=== PATIENT | male | born 1975 | race Caucasian/White ===

== ENCOUNTER 2019-04-17 09:22 | Emergency (ER) | payer OTHER, MEDICAID ==
[~2019-04-17] VITALS: Ht 177.8 cm; Wt 84.1 kg
[~2019-04-17 09:22] MED LIST: ATI0.5T PO; CITA-124 PO; CLON0.1T20 PO; NALT50TA PO; TRAZ-251 PO
[2019-04-17] MEDS ORDERED: LORazepam 2 mg/ml vial IV ONE ×2 (09:40→10:15)
[2019-04-17] MEDS ORDERED: thiamine 100mg/ml 2ml inj. IV ONE (09:40)
[2019-04-17] MEDS ORDERED: folic acid 1mg/0.2ml inj IV ONE (09:40)
[2019-04-17] MEDS ORDERED: normal saline 1000ML IV soln IVB ONE (09:40)
[2019-04-17] MEDS ORDERED: magnesium 2GM in 50ml NS 50 ML IV ONE (09:40)
[2019-04-17 09:57] LABS: BASOPHILS % (AUTO) 0.4 % (0-1); EOSINOPHILS % (AUTO) 0.3 % (0-6); HEMATOCRIT 42.2 % (42.0-52.0); HEMOGLOBIN 14.4 g/dl (14.0-17.9); LYMPHOCYTES # (AUTO) 0.8 X10'3 (1.1-4.8); LYMPHOCYTES % (AUTO) 15.9 % (21-51); MEAN CORPUSCULAR HEMOGLOBIN 33.9 PG (27.0-31.0); MEAN CORPUSCULAR HGB CONC 34.1 g/dL (33.0-36.5); MEAN CORPUSCULAR VOLUME 99.2 FL (78-98); MEAN PLATELET VOLUME 6.9 FL (7.4-10.4); MONOCYTES # (AUTO) 0.3 X10'3 (0-0.9); MONOCYTES % (AUTO) 6.5 % (2-12); NEUTROPHILS # (AUTO) 3.7 X10'3 (1.8-7.7); NEUTROPHILS % (AUTO) 76.9 % (42-75); PLATELET COUNT 78 X10'3 (140-440); RED BLOOD COUNT 4.25 X10'6 (4.70-6.10); RED CELL DISTRIBUTION WIDTH 13.7 % (11.5-14.5); WHITE BLOOD COUNT 4.8 X10'3 (4.5-11.0)
[2019-04-17] MEDS ORDERED: NO HOME MEDS (09:57)
[2019-04-17] MEDS ORDERED: ondansetron/PF 4mg/2ml inj IV ONE (10:15)
[2019-04-17 10:16] LABS: ALANINE AMINOTRANSFERASE 66 U/L (12-78); ALBUMIN 4.5 G/DL (3.4-5.0); ALBUMIN/GLOBULIN RATIO 1.1 (1.1-1.5); ALKALINE PHOSPHATASE 57 IU/L (46-116); ANION GAP 18 (8-16); ASPARTATE AMINO TRANSFERASE 57 U/L (10-37); BLOOD UREA NITROGEN 16 MG/DL (7-18); BUN/CREATININE RATIO 17.4 (5.4-32.0); CALCIUM 8.7 MG/DL (8.5-10.1); CHLORIDE 96 MMOL/L (99-107); CREATININE 0.92 MG/DL (0.60-1.10); GLUCOSE 146 MG/DL (70-104); POTASSIUM 3.7 MMOL/L (3.5-5.1); SODIUM 137 MMOL/L (135-145); TOTAL PROTEIN 8.5 G/DL (6.4-8.2); eGFR 89 ML/MIN
[2019-04-17 10:20] LABS: CREATINE KINASE 599 U/L (39-308); ETHANOL < 0.010 GM/DL (0.0-0.010)
[2019-04-17] MEDS ORDERED: LORazepam 1 MG tablet PO ONE (12:10)
--- NOTE | 2019-04-17 12:11 | NUR ---
pt is unsteady on his feet, c/o dizziness with gait test. notified cristiano morales. new order for 1mg ativan po.
[2019-04-17 13:26] VITALS: BP 142/82
[2019-04-17] MEDS ORDERED: GABA300C PO (16:59)
[2019-04-17] MEDS ORDERED: LORA1TAB PO (16:59)
== END 2019-04-17 13:38 | disposition home or self-care (01) ==
LOC: ER 09:23
DX: S00.81XA Abrasion of other part of head, initial encounter (principal); F10.239 Alcohol dependence with withdrawal, unspecified; R56.9 Unspecified convulsions; R52 Pain, unspecified; F32.9 Major depressive disorder, single episode, unspecified; Z88.0 Allergy status to penicillin; Z88.1 Allergy status to other antibiotic agents; Z79.899 Other long term (current) drug therapy; X58.XXXA Exposure to other specified factors, initial encounter; Y93.89 Activity, other specified; Y92.89 Other specified places as the place of occurrence of the external cause; Y99.8 Other external cause status
CPT/HCPCS: 36415; 70450; 71045; 80053; 80320; 82140; 82550; 82948; 85025; 85610; 93005; 96365; 96366; 96375; 96376; 99284; J2060; J2405; J3411; J3475; J3490; J7030

== ENCOUNTER 2019-04-17 13:50 | Emergency (ER) | payer BC, OTHER ==
[~2019-04-17] VITALS: Ht 177.8 cm; Wt 84.0 kg
[~2019-04-17 13:50] MED LIST changes: +NO HOME MEDS
[2019-04-17] MEDS ORDERED: normal saline 1000ML IV soln IV ONE (14:15)
[2019-04-17] MEDS ORDERED: LORA1TAB PO (16:59)
[2019-04-17] MEDS ORDERED: GABA300C PO (16:59)
--- NOTE | 2019-04-17 17:00 | NUR ---
PT C/O "AURA", "SPINNING" WHEN GETTING READY TO DISCHARGE AND TAKE IV OUT, EYES WERE BOUNCING UP AND DOWN. PROVIDER WAS NOTIFIED, CAME TO SPEAK TO PT AGAIN. PT WILL BE DISCHARGED WITH RX FOR ATIVAN AND GABAPENTIN, PER PROVIDER
[2019-04-17 17:06] VITALS: BP 151/89
== END 2019-04-17 17:08 | disposition home or self-care (01) ==
LOC: ER 13:51
DX: F10.10 Alcohol abuse, uncomplicated (principal); E86.0 Dehydration; F32.9 Major depressive disorder, single episode, unspecified; Z88.0 Allergy status to penicillin; Z88.1 Allergy status to other antibiotic agents; W18.39XA Other fall on same level, initial encounter; Y93.89 Activity, other specified; Y92.89 Other specified places as the place of occurrence of the external cause; Y99.8 Other external cause status; Y90.9 Presence of alcohol in blood, level not specified
CPT/HCPCS: 96360; 96361; 99284; J7030

== ENCOUNTER 2019-05-05 22:02 | Emergency (ER) | payer OTHER ==
[~2019-05-05] VITALS: Ht 177.8 cm; Wt 84.0 kg
[~2019-05-05 22:02] MED LIST changes: -ATI0.5T PO; -CITA-124 PO; -CLON0.1T20 PO; +GABA300C PO; -NALT50TA PO; -TRAZ-251 PO
[2019-05-05] MEDS ORDERED: normal saline 1000ML IV soln IVB ONE (22:40)
--- NOTE | 2019-05-05 23:00 | NUR ---
Poison control contacted, 4-6 hr observation recommended for possible DEPARTMENT SECRETARY depression
[2019-05-05 23:20] LABS: ALANINE AMINOTRANSFERASE 60 U/L (12-78); ALBUMIN 4.1 G/DL (3.4-5.0); ALBUMIN/GLOBULIN RATIO 0.9 (1.1-1.5); ALKALINE PHOSPHATASE 59 IU/L (46-116); ANION GAP 13 (8-16); ASPARTATE AMINO TRANSFERASE 41 U/L (10-37); BILIRUBIN,TOTAL 0.2 MG/DL (0.1-1.0); BLOOD UREA NITROGEN 14 MG/DL (7-18); BUN/CREATININE RATIO 15.7 (5.4-32.0); CHLORIDE 103 MMOL/L (99-107); CREATININE 0.89 MG/DL (0.60-1.10); GLUCOSE 78 MG/DL (70-104); POTASSIUM 4.3 MMOL/L (3.5-5.1); SODIUM 145 MMOL/L (135-145); TOTAL CARBON DIOXIDE 29.5 MMOL/L (24-32); TOTAL PROTEIN 8.5 G/DL (6.4-8.2); eGFR > 90 ML/MIN
[2019-05-05 23:30] LABS: BASOPHILS % (AUTO) 0.7 % (0-1); EOSINOPHILS % (AUTO) 0.5 % (0-6); ETHANOL 0.112 GM/DL (0.0-0.010); HEMATOCRIT 45.3 % (42.0-52.0); HEMOGLOBIN 15.6 g/dl (14.0-17.9); LYMPHOCYTES # (AUTO) 1.1 X10'3 (1.1-4.8); LYMPHOCYTES % (AUTO) 20.4 % (21-51); MEAN CORPUSCULAR HEMOGLOBIN 34.7 PG (27.0-31.0); MEAN CORPUSCULAR HGB CONC 34.4 g/dL (33.0-36.5); MEAN CORPUSCULAR VOLUME 100.9 FL (78-98); MEAN PLATELET VOLUME 6.7 FL (7.4-10.4); MONOCYTES # (AUTO) 0.5 X10'3 (0-0.9); MONOCYTES % (AUTO) 8.3 % (2-12); NEUTROPHILS # (AUTO) 3.9 X10'3 (1.8-7.7); NEUTROPHILS % (AUTO) 70.1 % (42-75); PLATELET COUNT 424 X10'3 (140-440); RED BLOOD COUNT 4.49 X10'6 (4.70-6.10); RED CELL DISTRIBUTION WIDTH 13.5 % (11.5-14.5); WHITE BLOOD COUNT 5.6 X10'3 (4.5-11.0)
[2019-05-05 23:33] LABS: CLARITY,URINE CLEAR (Clear); COLOR,URINE YELLOW (Yellow); GLUCOSE, URINE NEGATIVE (Neg); KETONES,URINE NEGATIVE (Neg); LEUKOCYTE ESTERASE ,URINE NEGATIVE (Neg); NITRITES, URINE NEGATIVE (Neg); OCCULT BLOOD,URINE NEGATIVE (Neg); PROTEIN,URINE 30 mg/dl (Neg); URINE AMPHETAMINE SCREEN NEGATIVE (Neg); URINE BARBITUATE SCREEN NEGATIVE (Neg); URINE BENZODIAZEPINES SCREEN NEGATIVE (Neg); URINE CANNABINOID SCREEN NEGATIVE (Neg); URINE COCAINE SCREEN NEGATIVE (Neg); URINE METHADONE SCREEN NEGATIVE (Neg); URINE OPIATE SCREEN POSITIVE (Neg); URINE PHENCYCLIDINE SCREEN NEGATIVE (Neg); UROBILINOGEN,URINE 0.2 E.U/dL (0.2-1.0)
[2019-05-05 23:34] LABS: UA COLLECTION TYPE VOIDED
--- NOTE | 2019-05-06 00:09 | NUR ---
Patient moved to 16 for direct observation, personal belongings inventoried, patient changed into hospital scrubs.
[2019-05-06 00:18] LABS: ACETAMINOPHEN < 2.0 UG/ML (10-30)
[2019-05-06 00:19] LABS: AMORPHOUS PHOSPHATES 1+; BACTERIA,URINE NONE SEEN /HPF (Neg); MUCUS STRANDS MODERATE /LPF (Neg); RBC,URINE NONE SEEN /HPF (0-2); SQUAMOUS EPITHELIAL CELL,UR FEW /LPF (FEW); WBC,URINE 0-4 /HPF (0-4)
--- NOTE | 2019-05-06 03:53 | NUR ---
TRANSFERRED CARE OF PATIENT TO HARPER CRISOSTOMO AT THIS TIME
--- NOTE | 2019-05-06 03:54 | NUR ---
PHONE REPORT FROM DUSTIN CRISOSTOMO
--- NOTE | 2019-05-06 03:57 | NUR ---
PATIENT AMBULATED FROM ROOM 16 IN MAIN ER TO ROOM 22 IN ER OVERFLOW WITH BETTINA CRISOSTOMO
--- NOTE | 2019-05-06 04:12 | NUR ---
Packet sent to [facility]. Unable to confirm receipt of packet as [id number] hours.
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
--- NOTE | 2019-05-06 06:07 | NUR ---
PATIENT ATE YOGURT, CHEESE STCIK AND JUICE
--- NOTE | 2019-05-06 07:31 | NUR ---
AWAKE AND RESTING IN BED. CALM AND QUIET WITHOUT COMPLAINTS. NO DISTRESS NOTED AT THIS TIME.
--- NOTE | 2019-05-06 08:27 | NUR ---
TELEPHONE CALL FROM PATIENT'S MOTHER, INQUIRING ABOUT SON'S ADMISSION STATUS. PATIENT STATES THAT HE WOULD ALLOW VISITATION FROM HIS MOTHER AND THAT WE CAN GIVE BASIC INFORMATION TO HER. MOTHER WILL BE COMING TO VISIT THIS MORNING. ER RIGISTRATION NOTIFIED OF PATIENT'S DESIRE TO ALLOW HIS MOTHER TO VISIT, DESPITE CONFIDENTIAL STATUS.
--- NOTE | 2019-05-06 08:46 | NUR ---
PATIENT'S EX-GIRLFRIEND, LAWRENCE, IS HERE TO VISIT AND INFORMED THAT SHE IS UNABLE AT THIS TIME, BASED ON PATIENT'S CONFIDENTIAL STATUS.
--- NOTE | 2019-05-06 09:10 | NUR ---
MOTHER HERE TO VISIT. APPROPRIATE INTERACTIONS NOTED BETWEEN PATIENT AND HIS MOTHER.
--- NOTE | 2019-05-06 10:26 | NUR ---
Break RN:patient asleep,on high fowlers.
--- NOTE | 2019-05-06 13:02 | NUR ---
OFFERED TO CHANGE PT LINENS, PT REQUESTED TO HELP ME "TO GIVE HIM SOMETHING TO DO". PT WAS GIVEN CLEAN MEDIUM SIZED SCURBS, HYGIENE BASIN, AND NEW SOCKS.
--- NOTE | 2019-05-06 13:06 | NUR ---
PTS GIRLFRIEND LAWRENCE AT BEDSIDE.
--- NOTE | 2019-05-06 13:19 | NUR ---
RELIEVING RN FOR BREAK, PT IS CALM AND COOPERATIVE, SITTING ON BED TALKING QUIETLY WITH EX GIRLFRIEND
--- NOTE | 2019-05-06 13:50 | NUR ---
PT IVCENTE LEFT, PT STATES THE VISIT WENT WELL AND IS SMILING. PT REQUESTED SOMETHING TO DO AND PICKED A BOOK.
--- NOTE | 2019-05-06 14:46 | NUR ---
primary RN was sent on a 15 min break. pt at the nurses station making a phone call.
--- NOTE | 2019-05-06 17:29 | NUR ---
RELIEVING RN FOR LUNCH, PT RESTING IN BED, NO NEEDS AT THIS TIME.
--- NOTE | 2019-05-06 18:30 | NUR ---
RN assumed care of pt. pt. is calm, laying in bed and reading.
[2019-05-06] MEDS ORDERED: acetaminophen 325mg tablet PO ONE (18:45)
--- NOTE | 2019-05-06 19:00 | NUR ---
Pt. up and at nurses station. Pt. friendly. discussing the situation which resulted in his 5150 and being brought to the ER. Pt. reports that he was not suicidal, and that he's never been suicidal, only that he has bad coping with ETOH which has been on and off the last 8 years. Pt. reports that he was very devastated from his fiancee breaking off the engagement and breaking up with him. Pt. reports he is hoping to get discharged tomorrow and see his therapist and get set up with Dr. Montelongo or some rehab. Pt. reports he is concerened about being able to pay for rehab. Pt. reports he is hopeful for the future because he has 2 children ages 12 and 9 and wants to be there for him.
--- NOTE | 2019-05-06 21:00 | NUR ---
Pt. is awake and laying in bed and reading. Pt. in no distress. Will continue to monitor.
--- NOTE | 2019-05-06 23:00 | NUR ---
Pt. laying in bed reading a book. pt. in no distress. Will continue to monitor.
--- NOTE | 2019-05-07 01:02 | NUR ---
Pt. reading in bed. no signs of distress. Will continue to monitor.
--- NOTE | 2019-05-07 03:00 | NUR ---
Pt. laying on his side asleep. Normal rate and rhythm of respirations noted. Will continue to monitor.
--- NOTE | 2019-05-07 05:00 | NUR ---
Pt. laying on back awake in bed. pt. calm and has normal rate and rhythm of respirations.
[2019-05-07 05:30] VITALS: BP 164/88
--- NOTE | 2019-05-07 06:15 | NUR ---
Pt.'s BP 164/88. Pt. states, "I'm agitated. I can't sleep well. the light's in my eyes, people talking. I want to go home. Pt. shows no signs of ETOH withdrawal. HR 63, Temp 98.0, SPO2 98%, Resp 16
--- NOTE | 2019-05-07 06:41 | NUR ---
Patient reclining and reading. No distress observed. Continue to monitor.
--- NOTE | 2019-05-07 07:20 | NUR ---
Patient sitting in a chair by his bed chatting with staff. No distress observed. Patient denies SI and states he was never suicidal. Patient is awaiting re-eval from [facility]. Continue to monitor.
--- NOTE | 2019-05-07 09:22 | NUR ---
Patient sitting in chair in front of his bed and reading a book. No distress observed. Continue to monitor.
== END 2019-05-07 13:32 ==
LOC: ER 22:02 → EEVIPCON 22:02 → ER 05-07 13:32
DX: T14.91XA Suicide attempt, initial encounter (principal); F10.129 Alcohol abuse with intoxication, unspecified; Z88.0 Allergy status to penicillin; Z88.1 Allergy status to other antibiotic agents; Z79.899 Other long term (current) drug therapy; X83.8XXA Intentional self-harm by other specified means, initial encounter; Y93.89 Activity, other specified; Y92.89 Other specified places as the place of occurrence of the external cause; Y99.8 Other external cause status; Y90.0 Blood alcohol level of less than 20 mg/100 ml
CPT/HCPCS: 36415; 80053; 80305; 80320; 80329; 81001; 84443; 85025; 99285; J7030

== ENCOUNTER 2019-06-10 15:50 | Emergency (ER) | payer OTHER ==
[~2019-06-10] VITALS: Ht 177.8 cm; Wt 81.8 kg
[~2019-06-10 15:50] MED LIST changes: -NO HOME MEDS
[2019-06-10] MEDS ORDERED: LORazepam 2 mg/ml vial IV ONE (16:30)
[2019-06-10] MEDS ORDERED: normal saline 1000ML IV soln IVB ONE (16:30)
[2019-06-10] MEDS ORDERED: morphine 4 MG/ML inj SYRINge IV ONE (16:30)
--- NOTE | 2019-06-10 16:47 | NUR ---
ice pack to head
[2019-06-10 16:49] LABS: BASOPHILS # (AUTO) 0.1 X10'3 (0-0.2); BASOPHILS % (AUTO) 1.3 % (0-1); EOSINOPHILS % (AUTO) 1.1 % (0-6); HEMATOCRIT 44.7 % (42.0-52.0); HEMOGLOBIN 15.8 g/dl (14.0-17.9); LYMPHOCYTES # (AUTO) 1.3 X10'3 (1.1-4.8); LYMPHOCYTES % (AUTO) 30.6 % (21-51); MEAN CORPUSCULAR HEMOGLOBIN 35.1 PG (27.0-31.0); MEAN CORPUSCULAR HGB CONC 35.3 g/dL (33.0-36.5); MEAN CORPUSCULAR VOLUME 99.5 FL (78-98); MEAN PLATELET VOLUME 6.4 FL (7.4-10.4); MONOCYTES # (AUTO) 0.4 X10'3 (0-0.9); MONOCYTES % (AUTO) 8.7 % (2-12); NEUTROPHILS # (AUTO) 2.6 X10'3 (1.8-7.7); NEUTROPHILS % (AUTO) 58.3 % (42-75); PLATELET COUNT 246 X10'3 (140-440); RED CELL DISTRIBUTION WIDTH 14.1 % (11.5-14.5); WHITE BLOOD COUNT 4.4 X10'3 (4.5-11.0)
--- NOTE | 2019-06-10 16:51 | NUR ---
let dr garcia know that patient's head is still hurting despite morphine
[2019-06-10 16:57] LABS: ALANINE AMINOTRANSFERASE 62 U/L (12-78); ALBUMIN 4.1 G/DL (3.4-5.0); ALKALINE PHOSPHATASE 69 IU/L (46-116); ANION GAP 11 (8-16); ASPARTATE AMINO TRANSFERASE 49 U/L (10-37); BILIRUBIN,TOTAL 0.2 MG/DL (0.1-1.0); BLOOD UREA NITROGEN 19 MG/DL (7-18); BUN/CREATININE RATIO 24.4 (5.4-32.0); CALCIUM 8.6 MG/DL (8.5-10.1); CHLORIDE 100 MMOL/L (99-107); CREATININE 0.78 MG/DL (0.60-1.10); ETHANOL 0.291 GM/DL (0.0-0.010); GLUCOSE 117 MG/DL (70-104); POTASSIUM 3.4 MMOL/L (3.5-5.1); SODIUM 140 MMOL/L (135-145); TOTAL CARBON DIOXIDE 28.9 MMOL/L (24-32); TOTAL PROTEIN 8.3 G/DL (6.4-8.2); eGFR > 90 ML/MIN
[2019-06-10] MEDS ORDERED: ketorolac trometh. 30mg/ml inj. IV ONE (17:25)
--- NOTE | 2019-06-10 17:42 | NUR ---
LAWRENCE (EMERGENCY CONTACT) WILL BUTT PRESSER MONROE AT 2030.
--- NOTE | 2019-06-10 18:00 | NUR ---
DISUSSED PATIENT'S OSPINA WITH DR MILLER, NO NEW ORDERS: PATIENT RECEIVED TORADOL AND MORPHINE IV
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
--- NOTE | 2019-06-10 18:29 | NUR ---
TALKED WITH PATIENT'S MOTHER AT [phone] AND SHE WILL PICK HIM UP
[2019-06-10] MEDS ORDERED: proCHLORperazine 10 MG/2 ml inj IV ONE (18:30)
--- NOTE | 2019-06-10 18:47 | NUR ---
discussed pt's c/o pain with edmd garcia; no new orders received.
[2019-06-10 19:21] VITALS: BP 141/63
--- NOTE | 2019-06-10 19:21 | NUR ---
WALKED PATIENT OUT TO HIS MOTHER'S CAR WITH MINIMAL ASSIST WITH MOTHER.
== END 2019-06-10 19:10 | disposition home or self-care (01) ==
LOC: ER 15:51
DX: F10.129 Alcohol abuse with intoxication, unspecified (principal); G40.909 Epilepsy, unspecified, not intractable, without status epilepticus; F17.200 Nicotine dependence, unspecified, uncomplicated; F32.9 Major depressive disorder, single episode, unspecified; Z88.0 Allergy status to penicillin; Z88.1 Allergy status to other antibiotic agents; Y90.9 Presence of alcohol in blood, level not specified
CPT/HCPCS: 36415; 71045; 80053; 80320; 82948; 85025; 93005; 96374; 96375; 99284; J0780; J1885; J2060; J2270; J7030

== ENCOUNTER 2019-08-23 17:28 | Emergency (ER) | payer OTHER ==
[~2019-08-23] VITALS: Ht 177.8 cm; Wt 70.0 kg
[2019-08-23] MEDS ORDERED: ondansetron/PF 4mg/2ml inj IV ONE (18:20)
[2019-08-23 18:54] LABS: MEAN CORPUSCULAR VOLUME 98.7 FL (78-98)
[2019-08-23 18:56] LABS: BASOPHILS % (AUTO) 0.8 % (0-1); HEMOGLOBIN 14.6 g/dl (14.0-17.9); LYMPHOCYTES % (AUTO) 20.2 % (21-51); MEAN CORPUSCULAR HEMOGLOBIN 34.2 PG (27.0-31.0); MEAN CORPUSCULAR HGB CONC 34.6 g/dL (33.0-36.5); MEAN PLATELET VOLUME 6.8 FL (7.4-10.4); MONOCYTES # (AUTO) 0.4 X10'3 (0-0.9); NEUTROPHILS # (AUTO) 3.4 X10'3 (1.8-7.7); PLATELET COUNT 193 X10'3 (140-440); RED BLOOD COUNT 4.26 X10'6 (4.70-6.10); RED CELL DISTRIBUTION WIDTH 12.6 % (11.5-14.5); WHITE BLOOD COUNT 4.8 X10'3 (4.5-11.0)
[2019-08-23 18:57] LABS: ALANINE AMINOTRANSFERASE 51 U/L (12-78); ALBUMIN 3.5 G/DL (3.4-5.0); ALKALINE PHOSPHATASE 63 IU/L (46-116); ANION GAP 6 (8-16); ASPARTATE AMINO TRANSFERASE 40 U/L (10-37); BILIRUBIN,TOTAL 0.4 MG/DL (0.1-1.0); BLOOD UREA NITROGEN 11 MG/DL (7-18); BUN/CREATININE RATIO 12.5 (5.4-32.0); CALCIUM 7.7 MG/DL (8.5-10.1); CHLORIDE 104 MMOL/L (99-107); CREATININE 0.88 MG/DL (0.60-1.10); ETHANOL 0.281 GM/DL (0.0-0.010); GLUCOSE 105 MG/DL (70-104); LIPASE 138 U/L (73-393); SODIUM 142 MMOL/L (135-145); TOTAL CARBON DIOXIDE 32.2 MMOL/L (24-32); eGFR > 90 ML/MIN
[2019-08-23] MEDS ORDERED: LORazepam 2 mg/ml vial IM ONE (19:20)
[2019-08-23 19:34] LABS: PLATELET ESTIMATE NORMAL; TOTAL CELLS COUNTED 100
[2019-08-23 22:09] VITALS: BP 145/76
--- NOTE | 2019-08-23 22:44 | NUR ---
PT AMBULATED TO LOBBY AND TAXI HAS BEEN CALLED - HIS MOTHER IS EXPECTING HIM AT HOME.
== END 2019-08-23 23:02 | disposition home or self-care (01) ==
LOC: ER 17:28
DX: F10.129 Alcohol abuse with intoxication, unspecified (principal); E83.51 Hypocalcemia; R11.10 Vomiting, unspecified; F32.9 Major depressive disorder, single episode, unspecified; Z86.69 Personal history of other diseases of the nervous system and sense organs; Z88.0 Allergy status to penicillin; Z88.1 Allergy status to other antibiotic agents; Z79.899 Other long term (current) drug therapy; Y90.0 Blood alcohol level of less than 20 mg/100 ml
CPT/HCPCS: 36415; 70450; 80053; 80320; 83690; 85025; 96372; 96374; 99284; J2060; J2405

== ENCOUNTER 2019-08-30 09:59 | Emergency (ER) | payer OTHER ==
[~2019-08-30] VITALS: Ht 177.8 cm; Wt 81.8 kg
[~2019-08-30 09:59] MED LIST changes: +ATI1T PO
[2019-08-30] MEDS ORDERED: haloperidol lactate 5mg/ml inj IM ONE (10:10)
[2019-08-30] MEDS ORDERED: LORazepam 2 mg/ml vial ONE (10:37)
[2019-08-30] MEDS ORDERED: LORazepam 2 mg/ml vial IV ONE (10:40)
[2019-08-30 10:49] LABS: BASOPHILS % (AUTO) 0.6 % (0-1); EOSINOPHILS % (AUTO) 0.4 % (0-6); HEMATOCRIT 39.2 % (42.0-52.0); HEMOGLOBIN 13.7 g/dl (14.0-17.9); LYMPHOCYTES # (AUTO) 0.9 X10'3 (1.1-4.8); LYMPHOCYTES % (AUTO) 10.4 % (21-51); MEAN CORPUSCULAR VOLUME 99.8 FL (78-98); MEAN PLATELET VOLUME 7.1 FL (7.4-10.4); MONOCYTES # (AUTO) 0.7 X10'3 (0-0.9); MONOCYTES % (AUTO) 7.6 % (2-12); PLATELET COUNT 118 X10'3 (140-440); RED BLOOD COUNT 3.92 X10'6 (4.70-6.10); RED CELL DISTRIBUTION WIDTH 12.8 % (11.5-14.5); WHITE BLOOD COUNT 8.6 X10'3 (4.5-11.0)
[2019-08-30 11:05] LABS: ALANINE AMINOTRANSFERASE 57 U/L (12-78); ALBUMIN 3.8 G/DL (3.4-5.0); ALBUMIN/GLOBULIN RATIO 1.1 (1.1-1.5); ALKALINE PHOSPHATASE 69 IU/L (46-116); ANION GAP 13 (8-16); ASPARTATE AMINO TRANSFERASE 38 U/L (10-37); BILIRUBIN,TOTAL 0.5 MG/DL (0.1-1.0); BLOOD UREA NITROGEN 29 MG/DL (7-18); BUN/CREATININE RATIO 30.9 (5.4-32.0); CALCIUM 8.5 MG/DL (8.5-10.1); CHLORIDE 100 MMOL/L (99-107); CREATININE 0.94 MG/DL (0.60-1.10); GLUCOSE 105 MG/DL (70-104); POTASSIUM 3.3 MMOL/L (3.5-5.1); SODIUM 135 MMOL/L (135-145); TOTAL CARBON DIOXIDE 22.2 MMOL/L (24-32); TOTAL PROTEIN 7.4 G/DL (6.4-8.2); eGFR 87 ML/MIN
[2019-08-30] MEDS ORDERED: normal saline 1000ml 1,000 ML IVB ONE (11:09)
--- NOTE | 2019-08-30 11:10 | NUR ---
Notified Dr. Brooks regarding hypotension 97/34 mmHg. Obtained verbal order to 1 L NS bolus IV stat. Fluids started.
--- NOTE | 2019-08-30 11:14 | NUR ---
Call Poison control spoke with Estrellita, who stated the following: Clonidine can cause hypotension and bradycardia- treatment involved is fluids and supportive care Drowsiness - monitor and maintain airway For Clonidine OD- 4 mg-10 mg narcan IV can sometimes be effective as a one time dose. No second dose is require, if it doesn't work it wont work as a second dose. Minimum of 4 hour observation. Ultimately Supportive care is indicated. Blood work- tylenol asa, CBC, CMP
[2019-08-30 11:15] LABS: ACETAMINOPHEN < 2.0 UG/ML (10-30); ETHANOL 0.188 GM/DL (0.0-0.010)
--- NOTE | 2019-08-30 12:30 | NUR ---
PT SLEEPING LAYING SUPINE, RESPIRATIONS EVEN AND UNLABORED. NO SIGN OF DISTRESS NOTED AT THIS TIME.
--- NOTE | 2019-08-30 12:51 | NUR ---
CT NOTIFIED, PT IS READY FOR CT
--- NOTE | 2019-08-30 13:00 | NUR ---
PT TO CT VIA SARA RAMSEY;TH VACUUM CLEANER REPAIR PERSON
--- NOTE | 2019-08-30 13:20 | NUR ---
Patient voided in urinal, and spilt urine on scrub pants and bedding, so I changed the bedding and helped patient into clean clothing.
[2019-08-30 13:30] LABS: CLARITY,URINE CLEAR (Clear); COLOR,URINE STRAW (Yellow); GLUCOSE, URINE NEGATIVE (Neg); KETONES,URINE NEGATIVE (Neg); LEUKOCYTE ESTERASE ,URINE NEGATIVE (Neg); NITRITES, URINE NEGATIVE (Neg); OCCULT BLOOD,URINE NEGATIVE (Neg); PH,URINE 5.5 (4.8-8.0); PROTEIN,URINE NEGATIVE (Neg); UA COLLECTION TYPE URINAL; UROBILINOGEN,URINE 0.2 E.U/dL (0.2-1.0)
--- NOTE | 2019-08-30 13:35 | NUR ---
Patient is currently eating lunch, and has no complaints at this time.
[2019-08-30 13:36] LABS: URINE AMPHETAMINE SCREEN NEGATIVE (Neg); URINE BARBITUATE SCREEN NEGATIVE (Neg); URINE BENZODIAZEPINES SCREEN POSITIVE (Neg); URINE CANNABINOID SCREEN NEGATIVE (Neg); URINE COCAINE SCREEN NEGATIVE (Neg); URINE METHADONE SCREEN NEGATIVE (Neg); URINE OPIATE SCREEN NEGATIVE (Neg); URINE PHENCYCLIDINE SCREEN NEGATIVE (Neg)
--- NOTE | 2019-08-30 13:48 | NUR ---
PT IS SITTING UP IN BED EATING LUNCH. POLICE RESERVES COMMANDERLAVERNE CATALAN AT BEDSIDE.
--- NOTE | 2019-08-30 15:11 | NUR ---
KOREY FROM [facility] CONTROL CALLED, THE ONLY OTHER LABS LIVER FUNCTIONS REPEAT.
--- NOTE | 2019-08-30 15:29 | NUR ---
PT SLEEPING LAYING SUPINE, RESPIRATIONS EVEN AND UNLABORED. NO DISTRESS NOTED AT THIS TIME.
--- NOTE | 2019-08-30 15:44 | NUR ---
PACKET FAXED TO [facility]
[2019-08-30 16:01] LABS: ETHANOL 0.055 GM/DL (0.0-0.010)
[2019-08-30] MEDS ORDERED: ketorolac trometh. 30mg/ml inj. IV ONE (17:55)
[2019-08-30 18:36] VITALS: BP 96/50
== END 2019-08-30 19:50 ==
LOC: ER 09:59
DX: T42.4X2A Poisoning by benzodiazepines, intentional self-harm, initial encounter (principal); T42.6X2A Poisoning by other antiepileptic and sedative-hypnotic drugs, intentional self-harm, initial encounter; R41.82 Altered mental status, unspecified; F32.9 Major depressive disorder, single episode, unspecified; F10.20 Alcohol dependence, uncomplicated; Z86.69 Personal history of other diseases of the nervous system and sense organs; Z88.0 Allergy status to penicillin; Z88.1 Allergy status to other antibiotic agents; Z79.899 Other long term (current) drug therapy; Y90.0 Blood alcohol level of less than 20 mg/100 ml; Y92.89 Other specified places as the place of occurrence of the external cause
CPT/HCPCS: 36415; 70450; 80053; 80305; 80320; 80329; 81003; 84443; 84450; 84460; 85025; 93005; 96361; 96372; 96374; 96375; 99285; J1630; J1885; J2060; J7030

== ENCOUNTER 2019-08-30 15:45 | Inpatient (IN) | payer OTHER ==
[~2019-08-30] VITALS: Ht 177.8 cm; Wt 80.2 kg
[2019-08-30 20:00] VITALS: BP 105/68
--- NOTE | 2019-08-30 20:00 | NUR ---
Admission Note: Pt. admitted to [facility] at 1999, arrived via w/c accompanied by staff and security. Safety check and belongings inventoried by Kavon Leroy. Pt. was brought into the the ER today by Ste. Genevievesteven Fontaine on a 5150 for DTS and DTO. He had intentionally overdosed on "all of his medications" including 50 Ativan tablets, a "whole bottle" of Klonopin, and a "whole bottle" of Gabapentin. Pt. also reported drinking alcohol this morning. After overdosing he called his therapist, who then called 911. Upon admission assessment, pt. presents with flat affect and depression. He currently denies S/I, H/I, or any A/V/OSPINA. However, pt. does endorse anxiety, and reports that he has had a recent thirty pound weight loss r/t decreased appetite. When questioned by this junior copywriter, pt. reports that his last drink was on 08/26/19, and he drank four bottles of wine. He then had an ETOH withdrawal seizure and fell (reports a history of ETOH withdrawal seizures). Pt. has scabbed abrasions present on rt. forehead and upper lip r/t this fall. He also has a bruise on his rt. hip, pictures obtained and placed in chart. Pt. is on CIWA protocol, he reports a h/a and increased anxiety, Ativan 1mg administered X2 r/t protocol along with Tylenol. Pt. appears to be resting comfortably at this time, fall precautions are in place.
[2019-08-30] MEDS ORDERED: magnesium hydroxide 30ml (MOM) UD suspension PO PRN (20:35)
[2019-08-30] MEDS ORDERED: mag hydrox/Alum hydrox/simeth 30ml oral suspension PO PRN (20:35)
[2019-08-30] MEDS ORDERED: acetaminophen 325mg tablet PO PRN (20:35)
[2019-08-30] MEDS ORDERED: loperamide 2mg capsule PO PRN (20:35)
[2019-08-30] MEDS: LORazepam 1 MG tablet PO PRN ×2 (20:47→21:34)
[2019-08-30] MEDS ORDERED: NICOTINE POLACRILEX 2 MG LOZENGE BC PRN (21:30)
--- NOTE | 2019-08-31 03:25 | NUR ---
Awoke pt. to complete CIWA, pt. continues to report anxiety and a h/a, however he refuses any pain medication at this time. PRN Ativan administered r/t CIWA protocol, will continue to monitor.
[2019-08-31] MEDS: LORazepam 1 MG tablet PO PRN ×3 (03:30→16:43)
[2019-08-31] MEDS ORDERED: LORazepam 1 MG tablet PO PRN (04:00)
[2019-08-31 07:02] LABS: HEMOGLOBIN A1C 4.9 % (4.5-6.2)
[2019-08-31 07:04] LABS: CHOL/HDL RATIO 2.9 (0.00-4.99); CHOLESTEROL 177 MG/DL (0-200); HDL CHOLESTEROL 62 MG/DL (35-60); LDL CHOLESTEROL 109 MG/DL (50-100); TRIGLYCERIDES 44 MG/DL (20-135)
[2019-08-31 07:30] VITALS: BP 130/74
[2019-08-31] MEDS: gabapentin 300mg capsule PO SCH ×2 (08:29→16:43)
--- NOTE | 2019-08-31 09:28 | NUR ---
Malnutrition Consult: Pt admit on 5150 after intentional OD w/ SI and etoh consumption per EMR. Pt hx etoh withdrawals prior admit 2/3. Pt has no significant wt loss hx, no edema/wounds, normal strength, and BMI 25. PO meals pending. Pt does not meet minimum malnutrition criteria at this time. JOLANTA d/w RN regarding thiamin, folic, and MVI supplementation per MD approval given etoh hx. Addendum: 08/31/19 at [address] Amended: Links added.
[2019-08-31] MEDS: acetaminophen 325mg tablet PO PRN ×2 (11:21→16:20)
--- NOTE | 2019-08-31 16:57 | NUR ---
Nursing Progress Note: Legal hold: 5150 Client on involuntary status for DTS Report received from nurse with use of SBAR: ANDRESSA Alonso Why are they here: Pt. was brought into the the ER by Nancy Fontaine on a 5150 for DTS and DTO. He had intentionally overdosed on "all of his medications" including 50 Ativan tablets, a "whole bottle" of Klonopin, and a "whole bottle" of Gabapentin. Pt. also reported drinking alcohol that morning. After overdosing he called his therapist, who then called 911. Assessment What has happened this shift: Patient is observed resting at change of shift. He wakes and joins others for breakfast. He takes his medication without issue and he consumed all of his meal. He reports that he is still feeling very groggy this morning and that it is probably from all medications he took. He states that he wants the fogginess in his brain to go away because he is a thinker and he cant think. He states that he slept well the night before. He denies any needs at this time. Around 1100 patient reports that he is having a horrible headache and anxiety. RN administered Tyelnol and Ativan. Patient discussed the reasons he was feeling suicidal and denies feeling that way currently. He states that he has felt this way before in the past and just wishes that he could feel like he succeeded at something. Patient joins groups and is observed being appropriately social with staff and peers. He remains friendly and conversational througout the day. S/I, H/I: denies A/VH: denies Sleep: 8.5hrs NOC ADL's: Independent Group attendance: yes Were meds taken: Yes Any med S/E: None reported Mental Status Exam Appearance: clean and appropriate Eye contact: direct Behavior: Cooperative, friendly, tired Speech: soft tone, normal rate/rhythm Mood: disappointed Affect: congruent to mood with occasional brightening Thought process: Linear, reports he feels foggy Thought Content: no delusional thought content present Cognition: A/Ox4 Insight: Fair Judgment: Fair Interventions PRN's used: Ativan Therapeutic interventions: 1:1 therapeutic assessment, maintained safe therapeutic milieu, provided active listening with positive reinforcement, provided medication administration/education/monitoring as needed; Q15 safety checks. Restraints/seclusion/emergency medication: N/A Justification of Continued Inpatient Treatment: Continued therapeutic support and medication management needed to provide stabilization, prevent decompensation, improve coping mechanisms decreasing risk to patient and re-admittance.
[2019-08-31 19:00] VITALS: BP 122/77
[2019-08-31] MEDS: thiamine 100mg tablet PO SCH (21:13)
[2019-08-31] MEDS: traZODone 50mg tablet PO PRN (21:50)
[2019-09-01] MEDS: gabapentin 300mg capsule PO SCH ×3 (02:40→17:04)
[2019-09-01 02:45] VITALS: BP 120/69
[2019-09-01] MEDS: LORazepam 1 MG tablet PO PRN ×2 (04:43→11:33)
--- NOTE | 2019-09-01 05:01 | NUR ---
Nursing Progress Note: Legal hold: 5150 Client on involuntary status for DTS Report received from nurse with use of SBAR: Janice RN Why are they here: Pt. was brought into the the ER by Blakelysteven Fontaine on a 5150 for DTS and DTO. He had intentionally overdosed on "all of his medications" including 50 Ativan tablets, a "whole bottle" of Klonopin, and a "whole bottle" of Gabapentin. Pt. also reported drinking alcohol that morning. After overdosing he called his therapist, who then called 911. Assessment What has happened this shift: Patient laying in bed awake at the beginning of shift. He is pleasant and cooperative with all care; compliant with medication. Patient remains on CIWA q8H for Klonopin withdraw. He denies SI, HI, A/VH this shift. Patient minimizes his suicide attempt by reporting "it was just a dumb mistake; I don't want to ," with a smile. Patient socializes with staff. He participated in HS snack a. Patient requested sleep aid and provided Trazodone with positive effect. Patient was woke up migration agent for CIWA and he's remained awake. Shortly after leaving his room he requested Ativan for anxiety; pt reports positive effect. S/I, H/I: Denies A/VH: Denies Sleep: Refer to sleep assessment ADL's: Independent Group attendance: No groups this shift Were meds taken: Yes Any med S/E: None reported Mental Status Exam Appearance: Neat, clean and appropriate for the unit Eye contact: Direct Behavior: Cooperative, socializing Speech: soft tone, normal rate/rhythm Mood: "I'm good" Affect: Depressed with occasional brightening Thought process: Linear; minimizing suicide attempt Thought Content: Relationships Cognition: A/Ox4 Insight: Fair Judgment: Fair Interventions PRN's used: Trazodone and Ativan Therapeutic interventions: 1:1 therapeutic assessment, maintained safe therapeutic milieu, provided active listening with positive reinforcement, provided medication administration/education/monitoring as needed; Q15 safety checks. Restraints/seclusion/emergency medication: N/A Justification of Continued Inpatient Treatment: Continued therapeutic support and medication management needed to provide stabilization, prevent decompensation, improve coping mechanisms decreasing risk to patient and re-admittance.
[2019-09-01 07:35] VITALS: BP 143/92
[2019-09-01] MEDS: multivitamins, therapeutics tablet PO SCH (08:10)
[2019-09-01] MEDS: naltrexone 50mg tablet PO SCH (08:10)
[2019-09-01] MEDS: folic acid 1mg tablet PO SCH (08:10)
[2019-09-01] MEDS: ESCITALOPRAM OXALATE 5 MG TABLET PO SCH (08:10)
[2019-09-01] MEDS: thiamine 100mg tablet PO SCH ×2 (08:10→20:05)
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
[2019-09-01 20:00] VITALS: BP 134/91
[2019-09-01] MEDS: traZODone 50mg tablet PO PRN (22:51)
[2019-09-02] MEDS: gabapentin 300mg capsule PO SCH ×3 (01:37→15:35)
--- NOTE | 2019-09-02 05:16 | NUR ---
Nursing Progress Note: Legal hold: 5150 Client on involuntary status for DTS Report received from nurse with use of SBAR: ANDRESSA Camacho Why are they here: Pt. was brought into the the ER by Nancy Fontaine on a 5150 for DTS and DTO. He had intentionally overdosed on "all of his medications" including 50 Ativan tablets, a "whole bottle" of Klonopin, and a "whole bottle" of Gabapentin. Pt. also reported drinking alcohol that morning. After overdosing he called his therapist, who then called 911. Assessment What has happened this shift: Patient visible on the unit at the beginning of shift. Socializing with peers and staff. Pleasant and cooperative; compliant with medication. Patient denies SI, HI, A/VH. He discussed difficulties with past r/t lead to his "poor decision." Patient expressed readiness to discharge to home. Patient requested sleep aid and provided PRN Trazodone with possitive effect. S/I, H/I: Denies A/VH: Denies Sleep: Refer to sleep assessment ADL's: Independent Group attendance: No groups this shift Were meds taken: Yes Any med S/E: None reported Mental Status Exam Appearance: Neat, clean and appropriate for the unit Eye contact: Direct Behavior: Cooperative, socializing Speech: soft tone, normal rate/rhythm Mood: "Good" Affect: Depressed with occasional brightening Thought process: Linear; minimizing Thought Content: Relationships and discharge Cognition: A/Ox4 Insight: Fair Judgment: Fair Interventions PRN's used: Trazodone Therapeutic interventions: 1:1 therapeutic assessment, maintained safe therapeutic milieu, provided active listening with positive reinforcement, provided medication administration/education/monitoring as needed; Q15 safety checks. Restraints/seclusion/emergency medication: N/A Justification of Continued Inpatient Treatment: Continued therapeutic support and medication management needed to provide stabilization, prevent decompensation, improve coping mechanisms decreasing risk to patient and re-admittance.
[2019-09-02 08:00] VITALS: BP 132/87
[2019-09-02] MEDS: multivitamins, therapeutics tablet PO SCH (08:16)
[2019-09-02] MEDS: naltrexone 50mg tablet PO SCH (08:17)
[2019-09-02] MEDS: folic acid 1mg tablet PO SCH (08:17)
[2019-09-02] MEDS: thiamine 100mg tablet PO SCH (08:17)
[2019-09-02] MEDS: ESCITALOPRAM OXALATE 5 MG TABLET PO SCH (08:17)
--- NOTE | 2019-09-02 11:57 | NUR ---
Nursing Progress Note: Legal hold: 5150 Client on involuntary status for DTS Report received from nurse with use of SBAR: Deisy PRATER Why are they here: Pt. was brought into the the ER by Nancy Fontaine on a 5150 for DTS and DTO. He had intentionally overdosed on "all of his medications" including 50 Ativan tablets, a "whole bottle" of Klonopin, and a "whole bottle" of Gabapentin. Pt. also reported drinking alcohol that morning. After overdosing he called his therapist, who then called 911. Assessment What has happened this shift: Pt is denying symptoms today, states that "I feel pretty good." Pt states that [facility] with [facility] [place] and that he is all set up to go there. Pt's 5150 hold expires this evening. Pt's ex-girlfriend Shan called and wished to speak with pt. Both [employer] phones were in use at the time so she requested that this RN leave pt a message to call her. Notified pt of Shan's request. S/I, H/I: Pt denies A/VH: Pt denies Sleep: Pt slept 4.25 hours last night, does not nap during the day. ADL's: Independent Group attendance: Yes Were meds taken: Yes Any med S/E: None noted or reported Mental Status Exam Appearance: Neat, clean, dressed in street clothes Eye contact: good Behavior: Pleasant, cooperative Speech: Clear, audible, normal rate and rhythm Mood: "pretty good" Affect: Calm, euthymic Thought process: Organized Thought Content: Focused on discharge to inpatient rehab at [facility]. Cognition: A/O x 4 Insight: Good Judgment: Fair Interventions PRN's used: None Therapeutic interventions: 1:1 assessment, active listening, therapeutic conversation, positive reinforcement, medication administration/education/monitoring, Q15 minute safety checks. Restraints/seclusion/emergency medication: N/A Justification of Continued Inpatient Treatment: Continued therapeutic support and medication management needed to provide stabilization, prevent decompensation, improve coping mechanisms decreasing risk to patient and re-admittance.
[2019-09-02] MEDS ORDERED: NICO-687 TOP (12:58)
[2019-09-02] MEDS ORDERED: NALT50TA PO (12:58)
[2019-09-02] MEDS ORDERED: HYDR50TA65 PO ×2 (12:58→15:53)
[2019-09-02] MEDS ORDERED: NICO-668 BC (12:58)
[2019-09-02] MEDS ORDERED: ESCI5TAB PO ×2 (12:58→15:53)
--- NOTE | 2019-09-02 18:19 | NUR ---
DISCHARGE NOTE: Pt discharged home at 1650, ambulated off the unit accompanied by PCT, all belongings returned, paper RX's provided, discharge instructions and follow up care reviewed, pt expressed understanding.
== END 2019-09-02 16:50 | disposition home or self-care (01) | DRG 885 ==
LOC: ADULT MH 15:45
PROVIDERS: ADMIT Psychiatry & Neurology Psychiatry; ATTEND Psychiatry & Neurology Psychiatry
DX: F33.2 Major depressive disorder, recurrent severe without psychotic features (principal); R45.851 Suicidal ideations; F17.210 Nicotine dependence, cigarettes, uncomplicated; F10.10 Alcohol abuse, uncomplicated; Z79.899 Other long term (current) drug therapy; Z80.9 Family history of malignant neoplasm, unspecified
CPT/HCPCS: 36415; 80061; 83036; 87081; 93005; 99285

== ENCOUNTER 2019-09-23 13:49 | Emergency (ER) | payer OTHER ==
[~2019-09-23] VITALS: Ht 177.8 cm; Wt 84.0 kg
[~2019-09-23 13:49] MED LIST changes: -ATI1T PO; +ESCI5TAB PO; +HYDR50TA65 PO; +NALT50TA PO; +NICO-668 BC; +NICO-687 TOP
[2019-09-23] MEDS ORDERED: normal saline 1000ml 1,000 ML IV ONE (15:15)
[2019-09-23] MEDS ORDERED: LORazepam 2 mg/ml vial IV ONE (15:15)
[2019-09-23] MEDS ORDERED: chlordiazePOXIDE 25mg capsule PO ONE (15:15)
[2019-09-23] MEDS ORDERED: thiamine 100mg tablet PO ONE (15:20)
[2019-09-23] MEDS ORDERED: carBAMazepine Ext. Release 200 MG TAB.ER.12H PO STA (15:27)
[2019-09-23 15:51] LABS: BASOPHILS % (AUTO) 1.2 % (0-1); EOSINOPHILS # (AUTO) 0.1 X10'3 (0-0.9); EOSINOPHILS % (AUTO) 2.6 % (0-6); HEMOGLOBIN 13.3 g/dl (14.0-17.9); LYMPHOCYTES # (AUTO) 1.1 X10'3 (1.1-4.8); LYMPHOCYTES % (AUTO) 35.9 % (21-51); MEAN CORPUSCULAR HEMOGLOBIN 35.2 PG (27.0-31.0); MEAN CORPUSCULAR HGB CONC 35.1 g/dL (33.0-36.5); MEAN CORPUSCULAR VOLUME 100.3 FL (78-98); MEAN PLATELET VOLUME 6.6 FL (7.4-10.4); MONOCYTES # (AUTO) 0.3 X10'3 (0-0.9); MONOCYTES % (AUTO) 9.8 % (2-12); NEUTROPHILS # (AUTO) 1.6 X10'3 (1.8-7.7); NEUTROPHILS % (AUTO) 50.5 % (42-75); PLATELET COUNT 102 X10'3 (140-440); RED BLOOD COUNT 3.79 X10'6 (4.70-6.10); RED CELL DISTRIBUTION WIDTH 14.8 % (11.5-14.5); WHITE BLOOD COUNT 3.2 X10'3 (4.5-11.0)
[2019-09-23 16:00] LABS: PARTIAL THROMBOPLASTIN TIME 28 SECONDS (22-32)
[2019-09-23 16:02] LABS: ALANINE AMINOTRANSFERASE 27 U/L (12-78); ALBUMIN 3.4 G/DL (3.4-5.0); ALKALINE PHOSPHATASE 76 IU/L (46-116); ANION GAP 9 (8-16); ASPARTATE AMINO TRANSFERASE 41 U/L (10-37); BILIRUBIN,TOTAL 0.2 MG/DL (0.1-1.0); BLOOD UREA NITROGEN 22 MG/DL (7-18); BUN/CREATININE RATIO 27.5 (5.4-32.0); CALCIUM 7.9 MG/DL (8.5-10.1); CHLORIDE 109 MMOL/L (99-107); ETHANOL 0.224 GM/DL (0.0-0.010); GLUCOSE 97 MG/DL (70-104); POTASSIUM 3.6 MMOL/L (3.5-5.1); SODIUM 145 MMOL/L (135-145); TOTAL CARBON DIOXIDE 26.7 MMOL/L (24-32); TOTAL PROTEIN 6.8 G/DL (6.4-8.2); eGFR > 90 ML/MIN
[2019-09-23 16:14] VITALS: BP 116/74
[2019-09-23] MEDS ORDERED: TRAZ-251 PO (16:29)
[2019-09-23] MEDS ORDERED: LORA2TAB96 PO (16:29)
[2019-09-23] MEDS ORDERED: ONDA4TAB6 PO (16:29)
[2019-09-23] MEDS ORDERED: CHLO10CA6 (16:29)
[2019-09-23] MEDS ORDERED: NALT50TA PO (16:39)
[2019-09-23] MEDS ORDERED: OMEP20TA23 PO (16:39)
[2019-09-23] MEDS ORDERED: CARB100C9 PO (16:39)
[2019-09-23 16:43] LABS: URINE AMPHETAMINE SCREEN NEGATIVE (Neg); URINE BARBITUATE SCREEN NEGATIVE (Neg); URINE BENZODIAZEPINES SCREEN POSITIVE (Neg); URINE CANNABINOID SCREEN NEGATIVE (Neg); URINE COCAINE SCREEN NEGATIVE (Neg); URINE METHADONE SCREEN NEGATIVE (Neg); URINE OPIATE SCREEN NEGATIVE (Neg); URINE PHENCYCLIDINE SCREEN NEGATIVE (Neg)
== END 2019-09-23 16:54 | disposition home or self-care (01) ==
LOC: ER 13:49
DX: F10.239 Alcohol dependence with withdrawal, unspecified (principal); R10.84 Generalized abdominal pain; R11.2 Nausea with vomiting, unspecified; F32.9 Major depressive disorder, single episode, unspecified; Z86.69 Personal history of other diseases of the nervous system and sense organs; Z88.0 Allergy status to penicillin; Z88.1 Allergy status to other antibiotic agents; Z79.899 Other long term (current) drug therapy; Y90.0 Blood alcohol level of less than 20 mg/100 ml
CPT/HCPCS: 36415; 80053; 80305; 80320; 82948; 83735; 85025; 85610; 85730; 96361; 96374; 99284; J2060; J7030

== ENCOUNTER 2019-09-27 00:59 | Emergency (ER) | payer OTHER ==
[~2019-09-27] VITALS: Ht 177.8 cm; Wt 79.5 kg
[~2019-09-27 00:59] MED LIST changes: +CARB100C9 PO; +CHLO10CA6; -GABA300C PO; +LORA2TAB96 PO; -NICO-668 BC; -NICO-687 TOP; +OMEP20TA23 PO; +ONDA4TAB6 PO; +TRAZ-251 PO
[2019-09-27] MEDS ORDERED: diphenhydrAMINE 25mg capsule PO ONE (01:20)
[2019-09-27] MEDS ORDERED: triamcinolone acetonide 40mg/ml inj IM ONE (01:20)
[2019-09-27] MEDS ORDERED: cloNIDine 0.1 mg tablet PO ONE (01:20)
[2019-09-27] MEDS ORDERED: CLON-529 PO (01:29)
[2019-09-27] MEDS ORDERED: PRED20TA PO (01:29)
== END 2019-09-27 01:42 | disposition home or self-care (01) ==
LOC: ER 01:00
DX: R21 Rash and other nonspecific skin eruption (principal); F32.9 Major depressive disorder, single episode, unspecified; Z86.69 Personal history of other diseases of the nervous system and sense organs; Z88.0 Allergy status to penicillin; Z88.1 Allergy status to other antibiotic agents; Z79.899 Other long term (current) drug therapy
CPT/HCPCS: 96372; 99283; J3301; Q0163

== ENCOUNTER 2019-11-01 08:17 | Inpatient (IN) | payer OTHER ==
[2019-11-01] VITALS (12 sets, daily range): BP systolic 121–151; BP diastolic 82–104
[~2019-11-01] VITALS: Ht 177.8 cm; Wt 80.0 kg
[~2019-11-01 08:17] MED LIST changes: +CLON-529 PO
[2019-11-01] MEDS ORDERED: LORazepam 2 mg/ml vial IV ONE (08:30)
[2019-11-01] MEDS ORDERED: pantoprazole 40 MG vial IV ONE (08:30)
[2019-11-01] MEDS ORDERED: normal saline 1000ML IV soln IV ONE (08:30)
[2019-11-01] MEDS ORDERED: phenobarbital inj 130 MG in normal saline 100ml IV soln 99 ML IV ONE (08:55)
[2019-11-01 09:00] LABS: BASOPHILS % (AUTO) 0.5 % (0-1); EOSINOPHILS % (AUTO) 1.1 % (0-6); HEMATOCRIT 41.3 % (42.0-52.0); LYMPHOCYTES # (AUTO) 0.6 X10'3 (1.1-4.8); LYMPHOCYTES % (AUTO) 18.8 % (21-51); MEAN CORPUSCULAR HEMOGLOBIN 33.5 PG (27.0-31.0); MEAN CORPUSCULAR HGB CONC 33.9 g/dL (33.0-36.5); MEAN PLATELET VOLUME 6.9 FL (7.4-10.4); MONOCYTES # (AUTO) 0.3 X10'3 (0-0.9); MONOCYTES % (AUTO) 9.1 % (2-12); NEUTROPHILS # (AUTO) 2.3 X10'3 (1.8-7.7); NEUTROPHILS % (AUTO) 70.5 % (42-75); PLATELET COUNT 58 X10'3 (140-440); RED BLOOD COUNT 4.17 X10'6 (4.70-6.10); RED CELL DISTRIBUTION WIDTH 14.1 % (11.5-14.5); WHITE BLOOD COUNT 3.2 X10'3 (4.5-11.0)
[2019-11-01 09:08] LABS: ALANINE AMINOTRANSFERASE 283 U/L (12-78); ALBUMIN 3.7 G/DL (3.4-5.0); ALKALINE PHOSPHATASE 80 IU/L (46-116); ANION GAP 9 (8-16); ASPARTATE AMINO TRANSFERASE 283 U/L (10-37); BILIRUBIN,TOTAL 0.3 MG/DL (0.1-1.0); BLOOD UREA NITROGEN 14 MG/DL (7-18); BUN/CREATININE RATIO 19.7 (5.4-32.0); CALCIUM 8.3 MG/DL (8.5-10.1); CHLORIDE 100 MMOL/L (99-107); CREATININE 0.71 MG/DL (0.60-1.10); GLUCOSE 97 MG/DL (70-104); POTASSIUM 3.8 MMOL/L (3.5-5.1); SODIUM 138 MMOL/L (135-145); TOTAL CARBON DIOXIDE 29.4 MMOL/L (24-32); TOTAL PROTEIN 7.4 G/DL (6.4-8.2); eGFR > 90 ML/MIN
[2019-11-01 09:12] LABS: PARTIAL THROMBOPLASTIN TIME 26 SECONDS (22-32)
[2019-11-01] MEDS ORDERED: tranexamic acid 100mg/ml inj. IV ONE (09:25)
[2019-11-01] MEDS: pantoprazole 40MG/NS 100ML BAG 100 ML IV SCH ×2 (09:27→16:00)
[2019-11-01] MEDS ORDERED: TRANEXAMIC ACID in 0.7% saline 1,000 MG/100 ML IVPB IV ONE ×3 (09:30)
[2019-11-01] MEDS ORDERED: tranexamic acid 1gm/0.7% sal. 100 ML IV ONE (09:35)
[2019-11-01] MEDS ORDERED: acetaminophen 325mg tablet PO PRN ×2 (10:55)
[2019-11-01] MEDS ORDERED: mag hydrox/Alum hydrox/simeth 30ml oral suspension PO PRN (10:55)
[2019-11-01] MEDS ORDERED: dextrose 50%-water 50ml dispensing syringe IV PRN (10:55)
[2019-11-01] MEDS ORDERED: morphine 2 MG/ML inj. syringe IV PRN ×2 (10:55)
[2019-11-01] MEDS ORDERED: haloperidol lactate 5mg/ml inj IM PRN (10:55)
[2019-11-01] MEDS ORDERED: thiamine 100mg/ml 2ml inj. IV ONE (10:55)
[2019-11-01] MEDS ORDERED: HYDROcodone/acetaminophen 5mg/325mg tablet PO PRN (10:55)
[2019-11-01] MEDS ORDERED: ondansetron/PF 4mg/2ml inj IV PRN (10:55)
[2019-11-01] MEDS ORDERED: magnesium hydroxide 30ml (MOM) UD suspension PO PRN (10:55)
[2019-11-01] MEDS ORDERED: haloperidol 5mg tablet PO PRN (10:55)
[2019-11-01] MEDS: normal saline 1000ml 1,000 ML IV SCH (11:07)
[2019-11-01 11:34] LABS: CLARITY,URINE CLEAR (Clear); COLOR,URINE STRAW (Yellow); GLUCOSE, URINE NEGATIVE (Neg); KETONES,URINE NEGATIVE (Neg); LEUKOCYTE ESTERASE ,URINE NEGATIVE (Neg); NITRITES, URINE NEGATIVE (Neg); OCCULT BLOOD,URINE TRACE-INTACT (Neg); PROTEIN,URINE TRACE mg/dl (Neg); UROBILINOGEN,URINE 0.2 E.U/dL (0.2-1.0)
[2019-11-01 11:47] LABS: UA COLLECTION TYPE URINAL
[2019-11-01 11:48] LABS: BACTERIA,URINE FEW /HPF (Neg); MUCUS STRANDS FEW /LPF (Neg); RBC,URINE 0-2 /HPF (0-2); SQUAMOUS EPITHELIAL CELL,UR FEW /LPF (FEW); WBC,URINE 0-4 /HPF (0-4)
--- NOTE | 2019-11-01 11:51 | NUR ---
PT LAYING IN BED SNORING, BUT RESTLESS, EASY TO AROUSE BY NAME
--- NOTE | 2019-11-01 11:53 | NUR ---
TRIED TO ASK PT ABOUT HOME MEDS BUT PT IS TO SLEEPY TO ANSWER
[2019-11-01] MEDS ORDERED: GABA-532 PO (12:23)
[2019-11-01] MEDS ORDERED: NALT50TA PO (12:31)
[2019-11-01] MEDS ORDERED: OMEP-50 PO (12:31)
[2019-11-01] MEDS ORDERED: CLON0.1T2 PO (12:31)
[2019-11-01] MEDS ORDERED: CHLO10CA6 (12:33)
[2019-11-01] MEDS ORDERED: TRAZ-251 PO (12:35)
[2019-11-01] MEDS ORDERED: ACAM333T8 PO (12:35)
[2019-11-01] MEDS ORDERED: CHLO25CA10 PO (12:46)
[2019-11-01] MEDS: LORazepam 1 MG tablet PO PRN (13:08)
--- NOTE | 2019-11-01 13:22 | NUR ---
CALLED REPORT TO SURGICAL DARON CRISOSTOMO
--- NOTE | 2019-11-01 13:30 | NUR ---
Received patient report via phone from Maury CRISOSTOMO in ER. Had opportunity to ask questions will assume patient care when patient comes to the floor until primary RN Sandra is back from Lunch.
--- NOTE | 2019-11-01 13:40 | NUR ---
Patient arrived to the floor via [facility]. Patient was able to transfer self from [facility] to hospital bed. Patient was given call light, vitals taken, bed alarm set, skin check completed. Will give patient report to Sandra CRISOSTOMO
[2019-11-01] MEDS: LORazepam 2 mg/ml vial IV PRN ×2 (15:09→20:41)
[2019-11-01] MEDS ORDERED: fentaNYL/PF 50MCG/1 ML 2ML syringe ONE (15:25)
[2019-11-01] MEDS ORDERED: MIDAZolam 5mg/5ml vial ONE (15:25)
[2019-11-01] MEDS ORDERED: LIDOcaine Viscous 15ml cup ONE (15:25)
--- NOTE | 2019-11-01 16:30 | NUR ---
Received report from mirian CRISOSTOMO from GI lab patient appears very sedated. will continue to monitor.
[2019-11-01 16:36] LABS: OCCULT BLOOD STOOL NEGATIVE (Neg)
--- NOTE | 2019-11-01 17:42 | NUR ---
Patient in room ADRIANA 347. I have received report from manny CRISOSTOMO and had the opportunity to ask questions and assume patient care.
--- NOTE | 2019-11-01 17:43 | NUR ---
Patient is scheduled for EGD. went for procedure. Given Ativan 2mg prior to GI lab.
--- NOTE | 2019-11-01 18:23 | NUR ---
Patient appears stable Post procedure VS being done at time of report. Elevated B/P 153/96. patient very sedated still. Seizure pads in place. Report given to Edna CRISOSTOMO
--- NOTE | 2019-11-01 18:30 | NUR ---
Patient in room ADRIANA 347. I have received report from DARON CRISOSTOMO and had the opportunity to ask questions and assume patient care.
[2019-11-01] MEDS: pantoprazole 40 MG vial IV SCH (20:37)
[2019-11-02] VITALS: BP 139/88
[2019-11-02] MEDS: normal saline 1000ml 1,000 ML IV SCH ×4 (00:49→19:33)
[2019-11-02] MEDS: LORazepam 2 mg/ml vial IV PRN (03:59)
[2019-11-02 05:44] LABS: BASOPHILS % (AUTO) 0.6 % (0-1); EOSINOPHILS % (AUTO) 0.5 % (0-6); HEMATOCRIT 38.6 % (42.0-52.0); HEMOGLOBIN 13.3 g/dl (14.0-17.9); LYMPHOCYTES # (AUTO) 0.4 X10'3 (1.1-4.8); LYMPHOCYTES % (AUTO) 7.6 % (21-51); MEAN CORPUSCULAR HEMOGLOBIN 34.1 PG (27.0-31.0); MEAN CORPUSCULAR HGB CONC 34.4 g/dL (33.0-36.5); MEAN CORPUSCULAR VOLUME 99.2 FL (78-98); MEAN PLATELET VOLUME 7.4 FL (7.4-10.4); MONOCYTES # (AUTO) 0.3 X10'3 (0-0.9); MONOCYTES % (AUTO) 6.7 % (2-12); NEUTROPHILS # (AUTO) 3.9 X10'3 (1.8-7.7); NEUTROPHILS % (AUTO) 84.6 % (42-75); RED BLOOD COUNT 3.89 X10'6 (4.70-6.10); RED CELL DISTRIBUTION WIDTH 13.9 % (11.5-14.5); WHITE BLOOD COUNT 4.7 X10'3 (4.5-11.0)
[2019-11-02 05:54] LABS: PLATELET COUNT 50 X10'3 (140-440)
[2019-11-02 05:56] LABS: ALANINE AMINOTRANSFERASE 233 U/L (12-78); ALBUMIN 3.5 G/DL (3.4-5.0); ALKALINE PHOSPHATASE 73 IU/L (46-116); ANION GAP 10 (8-16); ASPARTATE AMINO TRANSFERASE 208 U/L (10-37); BLOOD UREA NITROGEN 13 MG/DL (7-18); BUN/CREATININE RATIO 17.1 (5.4-32.0); CALCIUM 8.1 MG/DL (8.5-10.1); CHLORIDE 100 MMOL/L (99-107); CREATININE 0.76 MG/DL (0.60-1.10); GLUCOSE 78 MG/DL (70-104); POTASSIUM 3.6 MMOL/L (3.5-5.1); SODIUM 136 MMOL/L (135-145); TOTAL CARBON DIOXIDE 26.2 MMOL/L (24-32); TOTAL PROTEIN 6.9 G/DL (6.4-8.2); eGFR > 90 ML/MIN
--- NOTE | 2019-11-02 06:08 | NUR ---
CALLED DR. ROY AND WAS INFORMED OF CRITICAL PLATELETT 50 NO NEW ORDERS MADE.
--- NOTE | 2019-11-02 06:30 | NUR ---
Problems reprioritized. Patient report given, questions answered & plan of care reviewed with PATRIA CRISOSTOMO.
--- NOTE | 2019-11-02 06:51 | NUR ---
Patient in room ADRI[facility] 347. I have received report from Lynda Howell RN and had the opportunity to ask questions and assume patient care.
[2019-11-02 07:00] VITALS: BP 154/103
[2019-11-02] MEDS: thiamine 100mg tablet PO SCH (07:36)
[2019-11-02] MEDS: LORazepam 1 MG tablet PO PRN ×4 (07:36→17:30)
[2019-11-02] MEDS: multivitamins, therapeutics tablet PO SCH (07:36)
[2019-11-02] MEDS: pantoprazole 40 MG vial IV SCH (07:37)
[2019-11-02] MEDS: folic acid 1mg tablet PO SCH (07:37)
[2019-11-02 11:00] VITALS: BP 144/95
--- NOTE | 2019-11-02 18:37 | NUR ---
Problems reprioritized. Patient report given, questions answered & plan of care reviewed with PAYTON CAIN RN.
--- NOTE | 2019-11-02 18:40 | NUR ---
Patient in room [facility]RI[facility] 347. I have received report from PATRIA CRISOSTOMO and had the opportunity to ask questions and assume patient care.
[2019-11-02] MEDS: pantoprazole 40mg Tablet.DR PO SCH (19:30)
[2019-11-02 20:00] VITALS: BP 142/92
[2019-11-03] VITALS: BP 152/90
[2019-11-03] MEDS: LORazepam 1 MG tablet PO PRN ×2 (04:10→10:23)
[2019-11-03 05:29] LABS: BASOPHILS % (AUTO) 0.6 % (0-1); EOSINOPHILS % (AUTO) 0.9 % (0-6); HEMATOCRIT 40.8 % (42.0-52.0); HEMOGLOBIN 14.2 g/dl (14.0-17.9); LYMPHOCYTES # (AUTO) 0.6 X10'3 (1.1-4.8); LYMPHOCYTES % (AUTO) 15.3 % (21-51); MEAN CORPUSCULAR HEMOGLOBIN 34.4 PG (27.0-31.0); MEAN CORPUSCULAR HGB CONC 34.9 g/dL (33.0-36.5); MEAN CORPUSCULAR VOLUME 98.7 FL (78-98); MEAN PLATELET VOLUME 8.1 FL (7.4-10.4); MONOCYTES # (AUTO) 0.4 X10'3 (0-0.9); MONOCYTES % (AUTO) 10.3 % (2-12); NEUTROPHILS # (AUTO) 2.9 X10'3 (1.8-7.7); NEUTROPHILS % (AUTO) 72.9 % (42-75); PLATELET COUNT 66 X10'3 (140-440); RED BLOOD COUNT 4.14 X10'6 (4.70-6.10); RED CELL DISTRIBUTION WIDTH 13.8 % (11.5-14.5)
[2019-11-03 05:49] LABS: ALANINE AMINOTRANSFERASE 208 U/L (12-78); ALBUMIN 3.6 G/DL (3.4-5.0); ALBUMIN/GLOBULIN RATIO 0.9 (1.1-1.5); ALKALINE PHOSPHATASE 84 IU/L (46-116); ANION GAP 9 (8-16); ASPARTATE AMINO TRANSFERASE 136 U/L (10-37); BILIRUBIN,TOTAL 0.8 MG/DL (0.1-1.0); BLOOD UREA NITROGEN 11 MG/DL (7-18); BUN/CREATININE RATIO 15.3 (5.4-32.0); CALCIUM 8.7 MG/DL (8.5-10.1); CHLORIDE 101 MMOL/L (99-107); CREATININE 0.72 MG/DL (0.60-1.10); GLUCOSE 107 MG/DL (70-104); POTASSIUM 3.8 MMOL/L (3.5-5.1); SODIUM 135 MMOL/L (135-145); TOTAL CARBON DIOXIDE 24.7 MMOL/L (24-32); TOTAL PROTEIN 7.4 G/DL (6.4-8.2); eGFR > 90 ML/MIN
--- NOTE | 2019-11-03 06:25 | NUR ---
Problems reprioritized. Patient report given, questions answered & plan of care reviewed with MARLENE CRISOSTOMO.
[2019-11-03 07:00] VITALS: BP 144/101
--- NOTE | 2019-11-03 07:00 | NUR ---
Patient in room ADRI[facility] 347. I have received report from Lynda Howell RN and had the opportunity to ask questions and assume patient care.
[2019-11-03] MEDS: folic acid 1mg tablet PO SCH (07:44)
[2019-11-03] MEDS: thiamine 100mg tablet PO SCH (07:44)
[2019-11-03] MEDS: pantoprazole 40mg Tablet.DR PO SCH (07:44)
[2019-11-03] MEDS: multivitamins, therapeutics tablet PO SCH (07:44)
[2019-11-03 08:02] LABS: PLATELET ESTIMATE DECREASED
[2019-11-03] MEDS ORDERED: LORA2TAB96 PO (10:03)
[2019-11-03] MEDS ORDERED: LORA-269 PO (10:08)
[2019-11-03 11:00] VITALS: BP 148/64
--- NOTE | 2019-11-03 11:40 | NUR ---
Patient discharge reviewed with patient and patient verbalized understanding. Patients IV dc'd cannula intact. 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
[2019-11-03] MEDS ORDERED: PANT-47 PO (11:59)
== END 2019-11-03 11:39 | disposition home or self-care (01) | DRG 378 ==
LOC: ER 08:18 → ED HOLD 10:53 → SUR 3N 13:55
PROVIDERS: ADMIT Internal Medicine; ATTEND Internal Medicine
PROC: 0DJ08ZZ Inspection of Upper Intestinal Tract, Via Natural or Artificial Opening Endoscopic (ICD-10-PCS; principal; 2019-11-01)
DX: K29.21 Alcoholic gastritis with bleeding (principal); F10.239 Alcohol dependence with withdrawal, unspecified; D69.6 Thrombocytopenia, unspecified; D72.819 Decreased white blood cell count, unspecified; K20.9 Esophagitis, unspecified; K70.10 Alcoholic hepatitis without ascites; F32.9 Major depressive disorder, single episode, unspecified; Z79.899 Other long term (current) drug therapy; Z88.0 Allergy status to penicillin; Z88.1 Allergy status to other antibiotic agents
CPT/HCPCS: 36415; 43235; 71045; 80053; 81001; 82272; 82948; 85025; 85610; 85730; 86885; 86900; 86901; 87081; 93005; 96374; 96375; 99152; 99285; A4620; C9113; G0378; J2060; J2250; J2270; J2560; J3010; J3411; J7030; J7040

== ENCOUNTER 2019-12-14 20:29 | Emergency (ER) | payer MEDICAID ==
[~2019-12-14] VITALS: Ht 177.8 cm; Wt 77.3 kg
[~2019-12-14 20:29] MED LIST changes: +ACAM333T8 PO; -CARB100C9 PO; -CHLO10CA6; -CLON-529 PO; +CLON0.1T2 PO; -ESCI5TAB PO; +GABA-532 PO; -HYDR50TA65 PO; +LORA-269 PO; -LORA2TAB96 PO; -NALT50TA PO; -OMEP20TA23 PO; -ONDA4TAB6 PO; +PANT-47 PO
[2019-12-14] MEDS ORDERED: LORazepam 2 mg/ml vial IV ONE ×2 (21:00→22:55)
[2019-12-14] MEDS ORDERED: normal saline 1000ml 1,000 ML IV ONE ×2 (21:30→22:40)
[2019-12-14 22:08] LABS: BASOPHILS % (AUTO) 0.4 % (0-1); EOSINOPHILS % (AUTO) 0.4 % (0-6); HEMATOCRIT 44.4 % (42.0-52.0); HEMOGLOBIN 15.2 g/dl (14.0-17.9); LYMPHOCYTES # (AUTO) 0.7 X10'3 (1.1-4.8); LYMPHOCYTES % (AUTO) 12.4 % (21-51); MEAN CORPUSCULAR HGB CONC 34.2 g/dL (33.0-36.5); MEAN CORPUSCULAR VOLUME 99.3 FL (78-98); MEAN PLATELET VOLUME 6.5 FL (7.4-10.4); MONOCYTES # (AUTO) 0.4 X10'3 (0-0.9); MONOCYTES % (AUTO) 5.9 % (2-12); NEUTROPHILS # (AUTO) 4.8 X10'3 (1.8-7.7); NEUTROPHILS % (AUTO) 80.9 % (42-75); PLATELET COUNT 164 X10'3 (140-440); RED BLOOD COUNT 4.47 X10'6 (4.70-6.10); RED CELL DISTRIBUTION WIDTH 13.8 % (11.5-14.5)
[2019-12-14 22:14] LABS: ALANINE AMINOTRANSFERASE 85 U/L (12-78); ALBUMIN 4.1 G/DL (3.4-5.0); ALKALINE PHOSPHATASE 75 IU/L (46-116); ANION GAP 13 (8-16); ASPARTATE AMINO TRANSFERASE 101 U/L (10-37); BILIRUBIN,TOTAL 0.5 MG/DL (0.1-1.0); BLOOD UREA NITROGEN 19 MG/DL (7-18); BUN/CREATININE RATIO 21.6 (5.4-32.0); CALCIUM 8.7 MG/DL (8.5-10.1); CHLORIDE 99 MMOL/L (99-107); CREATININE 0.88 MG/DL (0.60-1.10); ETHANOL 0.224 GM/DL (0.0-0.010); GLUCOSE 86 MG/DL (70-104); POTASSIUM 3.9 MMOL/L (3.5-5.1); SODIUM 137 MMOL/L (135-145); TOTAL CARBON DIOXIDE 25.5 MMOL/L (24-32); TOTAL PROTEIN 8.1 G/DL (6.4-8.2); eGFR > 90 ML/MIN
--- NOTE | 2019-12-14 22:34 | NUR ---
NONA MORALES AT BEDSIDE FOR REVEAL.
[2019-12-14] MEDS ORDERED: phenobarbital inj 260 MG in normal saline 100ml IV soln 100 ML IV ONE (22:55)
[2019-12-14] MEDS ORDERED: magnesium oxide 400mg tablet PO ONE (22:55)
[2019-12-14] MEDS ORDERED: thiamine 100mg tablet PO ONE (22:55)
[2019-12-14 22:56] LABS: CLARITY,URINE CLEAR (Clear); COLOR,URINE YELLOW (Yellow); GLUCOSE, URINE NEGATIVE (Neg); KETONES,URINE TRACE mg/dl (Neg); LEUKOCYTE ESTERASE ,URINE NEGATIVE (Neg); NITRITES, URINE NEGATIVE (Neg); OCCULT BLOOD,URINE SMALL (Neg); PH,URINE 5.5 (4.8-8.0); PROTEIN,URINE 100 mg/dl (Neg); UROBILINOGEN,URINE 0.2 E.U/dL (0.2-1.0)
[2019-12-14] MEDS ORDERED: normal saline 1000ML IV soln IVB ONE (23:00)
[2019-12-14 23:01] LABS: UA COLLECTION TYPE URINAL
[2019-12-14 23:03] LABS: BACTERIA,URINE NONE SEEN /HPF (Neg); RBC,URINE NONE SEEN /HPF (0-2); WBC,URINE 0-4 /HPF (0-4)
[2019-12-14 23:04] LABS: CELLULAR CAST 0-4 /LPF (NEGATIVE); FINE GRANULAR CAST 0-3 /LPF (NEGATIVE); RENAL CELLS, URINE FEW /HPF; SQUAMOUS EPITHELIAL CELL,UR NONE SEEN /LPF (FEW)
[2019-12-14] MEDS ORDERED: GABA300C PO (23:45)
[2019-12-15] MEDS ORDERED: phenobarbital inj 130 MG in normal saline 100ml IV soln 100 ML IV ONE ×2 (00:10→00:40)
[2019-12-15] MEDS ORDERED: ONDA8TAB6 PO (01:07)
[2019-12-15 02:11] VITALS: BP 129/80
== END 2019-12-15 02:27 | disposition home or self-care (01) ==
LOC: ER 20:29
DX: F10.229 Alcohol dependence with intoxication, unspecified (principal); F10.239 Alcohol dependence with withdrawal, unspecified; R11.0 Nausea; F32.9 Major depressive disorder, single episode, unspecified; Z86.69 Personal history of other diseases of the nervous system and sense organs; Z88.0 Allergy status to penicillin; Z88.1 Allergy status to other antibiotic agents; Z79.899 Other long term (current) drug therapy; Y90.0 Blood alcohol level of less than 20 mg/100 ml
CPT/HCPCS: 36415; 70450; 71045; 72125; 80053; 80320; 81001; 85025; 93005; 96361; 96365; 96375; 96376; 99285; J2060; J2560; J7030

== ENCOUNTER 2020-01-16 05:40 | Inpatient (IN) | payer MEDICAID ==
[~2020-01-16] VITALS: Ht 182.9 cm; Wt 80.0 kg
[~2020-01-16 05:40] MED LIST changes: -ACAM333T8 PO; +GABA300C PO; +ONDA8TAB6 PO
[2020-01-16] MEDS ORDERED: normal saline 1000ML IV soln IVB ONE (05:45)
[2020-01-16] MEDS ORDERED: LORazepam 2 mg/ml vial IV ONE ×2 (05:45→05:50)
[2020-01-16] MEDS ORDERED: phenobarbital sod 130mg/ml inj. IV ONE ×3 (05:55→08:05)
[2020-01-16 06:02] LABS: BASOPHILS % (AUTO) 0.3 % (0-1); EOSINOPHILS % (AUTO) 0.1 % (0-6); HEMATOCRIT 37.3 % (42.0-52.0); HEMOGLOBIN 12.9 g/dl (14.0-17.9); LYMPHOCYTES # (AUTO) 1.2 X10'3 (1.1-4.8); MEAN CORPUSCULAR HEMOGLOBIN 33.7 PG (27.0-31.0); MEAN CORPUSCULAR HGB CONC 34.6 g/dL (33.0-36.5); MEAN CORPUSCULAR VOLUME 97.4 FL (78-98); MEAN PLATELET VOLUME 7.6 FL (7.4-10.4); MONOCYTES # (AUTO) 0.6 X10'3 (0-0.9); MONOCYTES % (AUTO) 6.2 % (2-12); NEUTROPHILS # (AUTO) 8.2 X10'3 (1.8-7.7); NEUTROPHILS % (AUTO) 81.4 % (42-75); RED BLOOD COUNT 3.83 X10'6 (4.70-6.10); RED CELL DISTRIBUTION WIDTH 14.2 % (11.5-14.5); WHITE BLOOD COUNT 10.1 X10'3 (4.5-11.0)
[2020-01-16 06:15] LABS: PARTIAL THROMBOPLASTIN TIME 24 SECONDS (22-32)
[2020-01-16 06:18] LABS: ALANINE AMINOTRANSFERASE 336 U/L (12-78); ALBUMIN 4.3 G/DL (3.4-5.0); ALBUMIN/GLOBULIN RATIO 1.2 (1.1-1.5); ALKALINE PHOSPHATASE 98 IU/L (46-116); ANION GAP 26 (8-16); ASPARTATE AMINO TRANSFERASE 366 U/L (10-37); BILIRUBIN,TOTAL 2.2 MG/DL (0.1-1.0); BLOOD UREA NITROGEN 19 MG/DL (7-18); BUN/CREATININE RATIO 13.1 (5.4-32.0); CALCIUM 8.6 MG/DL (8.5-10.1); CHLORIDE 94 MMOL/L (99-107); CREATININE 1.45 MG/DL (0.60-1.10); ETHANOL < 0.010 GM/DL (0.0-0.010); GLUCOSE 195 MG/DL (70-104); POTASSIUM 3.5 MMOL/L (3.5-5.1); SODIUM 136 MMOL/L (135-145); TOTAL CARBON DIOXIDE 16.4 MMOL/L (24-32); TOTAL PROTEIN 7.9 G/DL (6.4-8.2); eGFR 53 ML/MIN
--- NOTE | 2020-01-16 06:23 | NUR ---
Contact info: Jesus Dallas (John) [phone], Ruth : [phone]
[2020-01-16 06:39] LABS: PLATELET COUNT 50 X10'3 (140-440)
--- NOTE | 2020-01-16 07:20 | NUR ---
PT TAKEN TO CT WITH ANDRESSA MATT
[2020-01-16 07:49] LABS: CLARITY,URINE SLIGHTLY CLOUDY (Clear); COLOR,URINE YELLOW (Yellow); GLUCOSE, URINE NEGATIVE (Neg); KETONES,URINE 40 mg/dl (Neg); LEUKOCYTE ESTERASE ,URINE NEGATIVE (Neg); NITRITES, URINE NEGATIVE (Neg); OCCULT BLOOD,URINE SMALL (Neg); PROTEIN,URINE 100 mg/dl (Neg)
[2020-01-16 07:50] LABS: UA COLLECTION TYPE URINAL
[2020-01-16 07:53] LABS: URINE AMPHETAMINE SCREEN NEGATIVE (Neg); URINE BARBITUATE SCREEN NEGATIVE (Neg); URINE BENZODIAZEPINES SCREEN NEGATIVE (Neg); URINE CANNABINOID SCREEN NEGATIVE (Neg); URINE COCAINE SCREEN NEGATIVE (Neg); URINE METHADONE SCREEN NEGATIVE (Neg); URINE OPIATE SCREEN NEGATIVE (Neg); URINE PHENCYCLIDINE SCREEN NEGATIVE (Neg)
[2020-01-16 07:56] LABS: MUCUS STRANDS MODERATE /LPF (Neg)
[2020-01-16 07:57] LABS: HYALINE CASTS >30 /LPF (NEGATIVE)
[2020-01-16 07:58] LABS: WBC,URINE 0-4 /HPF (0-4)
[2020-01-16 08:00] LABS: BACTERIA,URINE 1+ /HPF (Neg); RBC,URINE 0-2 /HPF (0-2); SQUAMOUS EPITHELIAL CELL,UR FEW /LPF (FEW)
[2020-01-16] MEDS ORDERED: phenobarbital inj 260 MG in normal saline 100ml IV soln IV ONE (08:10)
[2020-01-16] MEDS ORDERED: LORazepam 2 mg/ml vial IV PRN ×4 (09:00)
[2020-01-16] MEDS ORDERED: potassium CL 10mEq/100ml bag 100 ML IV PRN ×2 (09:00)
[2020-01-16] MEDS ORDERED: thiamine 100mg/ml 2ml inj. IV ONE ×3 (09:00)
[2020-01-16] MEDS ORDERED: magnesium Cl slow-release 64mg tablet PO PRN (09:00)
[2020-01-16] MEDS ORDERED: potassium Cl 20 mEq SR tablet PO PRN ×2 (09:00)
[2020-01-16] MEDS ORDERED: haloperidol 5mg tablet PO PRN ×2 (09:00)
[2020-01-16] MEDS ORDERED: thiamine inj. 100 MG in normal saline 100ml IV soln 100 ML IV ONE (09:00)
[2020-01-16] MEDS ORDERED: cloNIDine 0.1 mg tablet PO PRN (09:00)
[2020-01-16] MEDS ORDERED: magnesium 2GM in 50ml NS 50 ML IV PRN (09:00)
[2020-01-16] MEDS ORDERED: loperamide 2mg capsule PO PRN (09:00)
[2020-01-16] MEDS ORDERED: dextrose 50%-water 50ml dispensing syringe IV PRN ×3 (09:00)
[2020-01-16] MEDS ORDERED: haloperidol lactate 5mg/ml inj IM PRN ×3 (09:00)
[2020-01-16] MEDS ORDERED: ondansetron/PF 4mg/2ml inj IV PRN (09:00)
[2020-01-16] MEDS ORDERED: acetaminophen 325mg tablet PO PRN (09:00)
[2020-01-16] MEDS ORDERED: HYDROcodone/acetaminophen 10/325mg tab PO PRN (09:00)
[2020-01-16] MEDS ORDERED: magnesium 4gm in 100ml NS 100 ML IV PRN (09:00)
[2020-01-16] MEDS ORDERED: mag hydrox/Alum hydrox/simeth 30ml oral suspension PO PRN (09:00)
[2020-01-16] MEDS ORDERED: magnesium hydroxide 30ml (MOM) UD suspension PO PRN (09:00)
--- NOTE | 2020-01-16 10:20 | NUR ---
Patient in room PCU 3027. I have received report from Yeimi RN and had the opportunity to ask questions and assume patient care.
[2020-01-16 10:30] VITALS: BP 140/92
--- NOTE | 2020-01-16 10:30 | NUR ---
Patient arrived to unit, tele placed, seizure precautions implemented, oriented to new room, VS temp 100.2, BP 140/92, HR 99, RR 18, O2 96%RA,
[2020-01-16 11:00] VITALS: BP 140/92
[2020-01-16] MEDS: potassium Cl 20mEq in NS 1,000 ML IV SCH ×2 (11:00→21:33)
[2020-01-16] MEDS: folic acid inj. 2 MG, thiamine inj. 100 MG, MVI, adult No.4 with vit. K 10 ML in dextro... IV SCH ×4 (11:29)
[2020-01-16] MEDS: LORazepam 1 MG tablet PO PRN ×2 (14:45→21:17)
[2020-01-16 15:00] VITALS: BP 133/92
[2020-01-16] MEDS ORDERED: PANT40SU2 PO (15:42)
[2020-01-16] MEDS ORDERED: CLON0.1T PO (16:00)
--- NOTE | 2020-01-16 18:32 | NUR ---
Problems reprioritized. Patient report given, questions answered & plan of care reviewed with Yesi CRISOSTOMO.
--- NOTE | 2020-01-16 18:43 | NUR ---
Patient in room PCU 3027. I have received report from ANDRESSA Cardona and had the opportunity to ask questions and assume patient care.
[2020-01-16] MEDS: K and/or MAG REPLACEMENT MC SCH (19:56)
[2020-01-16] MEDS: nystatin 15 GM powder TP SCH (21:18)
[2020-01-16 22:30] VITALS: BP 131/91
[2020-01-17 02:14] VITALS: BP 134/92
[2020-01-17] MEDS: HYDROcodone/acetaminophen 5mg/325mg tablet PO PRN ×3 (02:19→14:53)
[2020-01-17] MEDS: potassium Cl 20mEq in NS 1,000 ML IV SCH ×2 (04:44→14:53)
[2020-01-17 05:22] LABS: BASOPHILS % (AUTO) 0.5 % (0-1); EOSINOPHILS # (AUTO) 0.1 X10'3 (0-0.9); HEMATOCRIT 28.8 % (42.0-52.0); LYMPHOCYTES # (AUTO) 0.9 X10'3 (1.1-4.8); LYMPHOCYTES % (AUTO) 26.1 % (21-51); MEAN CORPUSCULAR HEMOGLOBIN 34.3 PG (27.0-31.0); MEAN CORPUSCULAR HGB CONC 34.9 g/dL (33.0-36.5); MEAN CORPUSCULAR VOLUME 98.3 FL (78-98); MONOCYTES # (AUTO) 0.3 X10'3 (0-0.9); MONOCYTES % (AUTO) 9.7 % (2-12); NEUTROPHILS # (AUTO) 2.2 X10'3 (1.8-7.7); NEUTROPHILS % (AUTO) 61.7 % (42-75); RED BLOOD COUNT 2.93 X10'6 (4.70-6.10); RED CELL DISTRIBUTION WIDTH 13.6 % (11.5-14.5); WHITE BLOOD COUNT 3.5 X10'3 (4.5-11.0)
[2020-01-17 05:42] LABS: ALANINE AMINOTRANSFERASE 232 U/L (12-78); ALBUMIN 3.3 G/DL (3.4-5.0); ALBUMIN/GLOBULIN RATIO 1.1 (1.1-1.5); ALKALINE PHOSPHATASE 73 IU/L (46-116); AMYLASE 43 U/L (25-115); ANION GAP 6 (8-16); ASPARTATE AMINO TRANSFERASE 255 U/L (10-37); BLOOD UREA NITROGEN 9 MG/DL (7-18); BUN/CREATININE RATIO 12.9 (5.4-32.0); CALCIUM 7.9 MG/DL (8.5-10.1); CHLORIDE 102 MMOL/L (99-107); GLUCOSE 81 MG/DL (70-104); LIPASE 387 U/L (73-393); MAGNESIUM 1.9 MG/DL (1.5-2.4); PHOSPHORUS 1.9 MG/DL (2.3-4.5); POTASSIUM 3.7 MMOL/L (3.5-5.1); SODIUM 135 MMOL/L (135-145); TOTAL CARBON DIOXIDE 26.6 MMOL/L (24-32); TOTAL PROTEIN 6.2 G/DL (6.4-8.2); eGFR > 90 ML/MIN
--- NOTE | 2020-01-17 06:02 | NUR ---
Problems reprioritized. Patient report given, questions answered & plan of care reviewed with ANDRESSA Cardona.
--- NOTE | 2020-01-17 06:32 | NUR ---
Patient in room PCU 3027. I have received report from Yesi CRISOSTOMO and had the opportunity to ask questions and assume patient care.
[2020-01-17 06:38] LABS: PLATELET COUNT 28 X10'3 (140-440)
--- NOTE | 2020-01-17 06:38 | NUR ---
Critical lab: Platelets 28. Notified primary ANDRESSA Cardona.
--- NOTE | 2020-01-17 06:41 | NUR ---
Called Dr. Young with critical Plt of 28. He said thank you and hung up.
[2020-01-17 07:00] VITALS: BP 152/93
--- NOTE | 2020-01-17 07:57 | NUR ---
paged Dr. Boucher. Josias Dallas. [id number]. FYI patients Plt were 28 this morning. They were [address] Young at 0650 and he said thank you and hung up. Also Phos is 1.9 without replacement. Please advise. TY. Cardona [phone]
--- NOTE | 2020-01-17 08:08 | NUR ---
K-Phos 30 [address] IV [address]1 per Dr. Boucher
[2020-01-17] MEDS ORDERED: potassium phosphate inj 30 MMOL in normal saline 500ml IV soln 500 ML IV ONE (08:10)
[2020-01-17] MEDS: nystatin 15 GM powder TP SCH ×3 (08:12→20:40)
[2020-01-17] MEDS: pantoprazole 40mg Tablet.DR PO SCH (08:12)
[2020-01-17] MEDS: LORazepam 1 MG tablet PO PRN ×2 (08:13→16:48)
[2020-01-17] MEDS: K and/or MAG REPLACEMENT MC SCH ×2 (08:14→19:51)
[2020-01-17] MEDS: folic acid inj. 2 MG, thiamine inj. 100 MG, MVI, adult No.4 with vit. K 10 ML in dextro... IV SCH ×4 (08:38)
[2020-01-17 11:00] VITALS: BP 125/84
[2020-01-17] MEDS ORDERED: FOLI0.4T2 PO (12:57)
[2020-01-17] MEDS ORDERED: THIA50TA10 PO (12:57)
[2020-01-17] MEDS ORDERED: NYSPWD TP (12:57)
[2020-01-17] MEDS ORDERED: PANT40TA4 PO (12:57)
[2020-01-17] MEDS ORDERED: MULT-1074 PO (12:57)
--- NOTE | 2020-01-17 13:12 | NUR ---
Malnutrition consult: Pt admit w/ etoh seizures hx binge drinking over a month 1-1.5L vodka daily per EMR. Receiving banana bag. PO 100% first regular diet meal, no edema/wound, no significant weakness, and no current scaled wt hx. At this time pt does not meet minimum malnutrition criteria. Will continue to monitor. Addendum: 01/17/20 at [address] Amended: Links added.
[2020-01-17 15:00] VITALS: BP 122/75
[2020-01-17 18:00] VITALS: BP 120/71
--- NOTE | 2020-01-17 18:16 | NUR ---
Problems reprioritized. Patient report given, questions answered & plan of care reviewed with Haider CRISOSTOMO.
[2020-01-17 22:00] VITALS: BP 124/87
[2020-01-18] MEDS: potassium Cl 20mEq in NS 1,000 ML IV SCH ×2 (00:33→10:59)
[2020-01-18 02:00] VITALS: BP 136/83
[2020-01-18] MEDS: LORazepam 1 MG tablet PO PRN ×2 (02:34→12:08)
[2020-01-18] MEDS: HYDROcodone/acetaminophen 5mg/325mg tablet PO PRN ×2 (02:34→07:39)
[2020-01-18 05:37] LABS: BASOPHILS % (AUTO) 0.4 % (0-1); EOSINOPHILS % (AUTO) 1.2 % (0-6); HEMATOCRIT 27.2 % (42.0-52.0); HEMOGLOBIN 9.5 g/dl (14.0-17.9); LYMPHOCYTES # (AUTO) 0.9 X10'3 (1.1-4.8); LYMPHOCYTES % (AUTO) 21.8 % (21-51); MEAN CORPUSCULAR HEMOGLOBIN 34.1 PG (27.0-31.0); MEAN CORPUSCULAR HGB CONC 34.9 g/dL (33.0-36.5); MEAN CORPUSCULAR VOLUME 97.7 FL (78-98); MONOCYTES # (AUTO) 0.3 X10'3 (0-0.9); MONOCYTES % (AUTO) 8.5 % (2-12); NEUTROPHILS # (AUTO) 2.7 X10'3 (1.8-7.7); NEUTROPHILS % (AUTO) 68.1 % (42-75); RED BLOOD COUNT 2.79 X10'6 (4.70-6.10)
[2020-01-18 05:58] LABS: ALANINE AMINOTRANSFERASE 250 U/L (12-78); ALBUMIN 3.3 G/DL (3.4-5.0); ALBUMIN/GLOBULIN RATIO 1.1 (1.1-1.5); ALKALINE PHOSPHATASE 73 IU/L (46-116); AMYLASE 48 U/L (25-115); ANION GAP 8 (8-16); ASPARTATE AMINO TRANSFERASE 253 U/L (10-37); BILIRUBIN,TOTAL 0.7 MG/DL (0.1-1.0); BLOOD UREA NITROGEN 8 MG/DL (7-18); CALCIUM 8.2 MG/DL (8.5-10.1); CHLORIDE 102 MMOL/L (99-107); CREATININE 0.73 MG/DL (0.60-1.10); GLUCOSE 87 MG/DL (70-104); LIPASE 405 U/L (73-393); MAGNESIUM 1.8 MG/DL (1.5-2.4); PHOSPHORUS 2.9 MG/DL (2.3-4.5); POTASSIUM 3.7 MMOL/L (3.5-5.1); SODIUM 136 MMOL/L (135-145); TOTAL CARBON DIOXIDE 26.2 MMOL/L (24-32); TOTAL PROTEIN 6.4 G/DL (6.4-8.2); eGFR > 90 ML/MIN
[2020-01-18 06:00] VITALS: BP 130/84
[2020-01-18 06:01] LABS: PLATELET COUNT 43 X10'3 (140-440)
--- NOTE | 2020-01-18 06:20 | NUR ---
Patient in room PCU 3027. I have received report from ANDRESSA Maloney and had the opportunity to ask questions and assume patient care.
[2020-01-18] MEDS: pantoprazole 40mg Tablet.DR PO SCH (07:38)
[2020-01-18] MEDS: nystatin 15 GM powder TP SCH ×2 (08:00→13:24)
[2020-01-18] MEDS: K and/or MAG REPLACEMENT MC SCH (08:00)
[2020-01-18] MEDS ORDERED: LORazepam 2 mg/ml vial IV PRN (09:00)
[2020-01-18] MEDS ORDERED: LORazepam 1 MG tablet PO PRN (09:00)
[2020-01-18 11:00] VITALS: BP 126/88
--- NOTE | 2020-01-18 11:57 | NUR ---
Awaiting MD response. PAGER ID: [phone] MESSAGE: Re: Josias Dallas. [id number]. U. Pt. requesting 3-5 day supply of PRN Ativan to help with withdrawal symptoms. Lary Recio, #[id number]
[2020-01-18] MEDS ORDERED: LORA-269 PO (12:12)
[2020-01-18] MEDS ORDERED: folic acid 1mg tablet PO SCH (12:14)
[2020-01-18] MEDS ORDERED: thiamine 100mg tablet PO SCH (12:14)
[2020-01-18] MEDS ORDERED: multivitamins, therapeutics tablet PO SCH (12:16)
--- NOTE | 2020-01-18 13:30 | NUR ---
Stable for discharge per MD orders. All discharge instructions reviewed with patient and all questions answered. New prescriptions e-scripted into [facility] in [place], [place]. Ativan prescription written and signed by Dr. Boucher, placed into patients discharge folder. PIV discontinued with IV cannula intact. community arts worker discontinued. Belongings collected and sent with patient. Patient wheeled to lobby by director school of nursing, where private vehicle driven by patients parents arrived. Cut patients armbands off at the time of discharge.
[2020-01-19] MEDS ORDERED: folic acid 1mg tablet PO SCH (08:00)
[2020-01-19] MEDS ORDERED: thiamine 100mg tablet PO SCH (08:00)
[2020-01-19] MEDS ORDERED: multivitamins, therapeutics tablet PO SCH (08:00)
[2020-01-20] MEDS ORDERED: LORazepam 1 MG tablet PO PRN (09:00)
[2020-01-20] MEDS ORDERED: LORazepam 2 mg/ml vial IV PRN (09:00)
== END 2020-01-18 13:32 | disposition home or self-care (01) | DRG 53 ==
LOC: ER 05:41 → ED HOLD 08:59 → PCU 3S 10:17
PROVIDERS: ADMIT Internal Medicine; ATTEND Internal Medicine
DX: G40.89 Other seizures (principal); N17.9 Acute kidney failure, unspecified; D69.6 Thrombocytopenia, unspecified; I95.9 Hypotension, unspecified; K70.10 Alcoholic hepatitis without ascites; B37.9 Candidiasis, unspecified; F10.239 Alcohol dependence with withdrawal, unspecified; R00.0 Tachycardia, unspecified; F17.210 Nicotine dependence, cigarettes, uncomplicated; F32.9 Major depressive disorder, single episode, unspecified; Z88.0 Allergy status to penicillin; Z79.899 Other long term (current) drug therapy; Z88.1 Allergy status to other antibiotic agents
CPT/HCPCS: 36415; 70450; 71045; 80053; 80305; 80320; 81001; 82150; 82948; 83690; 83735; 84100; 85025; 85610; 85730; 87081; 93005; 97112; 97116; 97161; 97530; 99291; G0378; J2060; J2560; J3411; J3480; J3490; J7030; J7040; J7060

== ENCOUNTER 2020-03-20 12:02 | Emergency (ER) | payer MEDICAID ==
[~2020-03-20] VITALS: Ht 177.8 cm; Wt 72.7 kg
[~2020-03-20 12:02] MED LIST changes: +CLON0.1T PO; -CLON0.1T2 PO; -GABA-532 PO; -GABA300C PO; +MULT-1074 PO; +NYSPWD TP; -ONDA8TAB6 PO; -PANT-47 PO; +PANT40TA4 PO; +THIA50TA10 PO; -TRAZ-251 PO
[2020-03-20] MEDS ORDERED: normal saline 1000ml 1,000 ML IV ONE (12:15)
[2020-03-20] MEDS ORDERED: naloxone 2mg/2ml inj IV ONE (12:15)
[2020-03-20 12:33] LABS: BASOPHILS % (AUTO) 0.4 % (0-1); EOSINOPHILS # (AUTO) 0.1 X10'3 (0-0.9); EOSINOPHILS % (AUTO) 1.3 % (0-6); LYMPHOCYTES # (AUTO) 1.4 X10'3 (1.1-4.8); LYMPHOCYTES % (AUTO) 30.7 % (21-51); MEAN CORPUSCULAR HEMOGLOBIN 33.7 PG (27.0-31.0); MEAN CORPUSCULAR HGB CONC 33.3 g/dL (33.0-36.5); MEAN CORPUSCULAR VOLUME 101.2 FL (78-98); MEAN PLATELET VOLUME 6.7 FL (7.4-10.4); MONOCYTES # (AUTO) 0.4 X10'3 (0-0.9); MONOCYTES % (AUTO) 9.2 % (2-12); NEUTROPHILS # (AUTO) 2.7 X10'3 (1.8-7.7); NEUTROPHILS % (AUTO) 58.4 % (42-75); PLATELET COUNT 147 X10'3 (140-440); RED BLOOD COUNT 4.15 X10'6 (4.70-6.10); RED CELL DISTRIBUTION WIDTH 13.5 % (11.5-14.5); WHITE BLOOD COUNT 4.6 X10'3 (4.5-11.0)
[2020-03-20 12:48] LABS: ALANINE AMINOTRANSFERASE 40 U/L (12-78); ALBUMIN 3.6 G/DL (3.4-5.0); ALKALINE PHOSPHATASE 53 IU/L (46-116); ANION GAP 11 (8-16); ASPARTATE AMINO TRANSFERASE 45 U/L (10-37); BILIRUBIN,TOTAL 0.2 MG/DL (0.1-1.0); BLOOD UREA NITROGEN 16 MG/DL (7-18); BUN/CREATININE RATIO 20.3 (5.4-32.0); CALCIUM 7.8 MG/DL (8.5-10.1); CHLORIDE 108 MMOL/L (99-107); CREATININE 0.79 MG/DL (0.60-1.10); GLUCOSE 73 MG/DL (70-104); POTASSIUM 4.2 MMOL/L (3.5-5.1); SODIUM 146 MMOL/L (135-145); TOTAL CARBON DIOXIDE 26.6 MMOL/L (24-32); TOTAL PROTEIN 7.3 G/DL (6.4-8.2); eGFR > 90 ML/MIN
[2020-03-20 12:55] LABS: ETHANOL 0.484 GM/DL (0.0-0.010)
[2020-03-20] MEDS ORDERED: sodium chloride 0.45% 1,000 ML IV ONE (13:20)
[2020-03-20 15:09] VITALS: BP 112/69
== END 2020-03-20 15:11 | disposition home or self-care (01) ==
LOC: ER 12:03 → EDBD 12:03 → MERGE 12:03 → ER 15:11
DX: F10.129 Alcohol abuse with intoxication, unspecified (principal); Y90.9 Presence of alcohol in blood, level not specified
CPT/HCPCS: 36415; 70450; 71045; 72125; 80053; 80320; 85025; 93005; 99285; J2310; J7030

== ENCOUNTER 2020-04-25 07:21 | Emergency (ER) | payer MEDICAID ==
[~2020-04-25] VITALS: Ht 177.8 cm; Wt 81.8 kg
[~2020-04-25 07:21] MED LIST changes: +GABA300C PO; -PANT40TA4 PO; +PANT40TA54 PO
[2020-04-25] MEDS ORDERED: phenobarbital inj 260 MG in normal saline 100ml IV soln 100 ML IV ONE (08:10)
[2020-04-25] MEDS ORDERED: thiamine 100mg tablet PO ONE (08:10)
[2020-04-25] MEDS ORDERED: magnesium oxide 400mg tablet PO ONE (08:10)
[2020-04-25] MEDS ORDERED: normal saline 1000ML IV soln IVB ONE (08:10)
[2020-04-25 08:34] LABS: BASOPHILS # (AUTO) 0.1 X10'3 (0-0.2); BASOPHILS % (AUTO) 1.8 % (0-1); EOSINOPHILS % (AUTO) 0.6 % (0-6); HEMATOCRIT 36.5 % (42.0-52.0); HEMOGLOBIN 12.8 g/dl (14.0-17.9); LYMPHOCYTES # (AUTO) 0.4 X10'3 (1.1-4.8); LYMPHOCYTES % (AUTO) 13.7 % (21-51); MEAN CORPUSCULAR HEMOGLOBIN 34.9 PG (27.0-31.0); MEAN CORPUSCULAR VOLUME 99.6 FL (78-98); MEAN PLATELET VOLUME 6.8 FL (7.4-10.4); MONOCYTES # (AUTO) 0.4 X10'3 (0-0.9); MONOCYTES % (AUTO) 11.4 % (2-12); NEUTROPHILS # (AUTO) 2.3 X10'3 (1.8-7.7); NEUTROPHILS % (AUTO) 72.5 % (42-75); PLATELET COUNT 56 X10'3 (140-440); RED BLOOD COUNT 3.67 X10'6 (4.70-6.10); WHITE BLOOD COUNT 3.2 X10'3 (4.5-11.0)
[2020-04-25 09:04] LABS: ALANINE AMINOTRANSFERASE 145 U/L (12-78); ALBUMIN 3.7 G/DL (3.4-5.0); ALKALINE PHOSPHATASE 101 IU/L (46-116); ANION GAP 7 (8-16); ASPARTATE AMINO TRANSFERASE 268 U/L (10-37); BILIRUBIN,TOTAL 0.9 MG/DL (0.1-1.0); BLOOD UREA NITROGEN 8 MG/DL (7-18); BUN/CREATININE RATIO 9.8 (5.4-32.0); CALCIUM 8.2 MG/DL (8.5-10.1); CHLORIDE 100 MMOL/L (99-107); CREATININE 0.82 MG/DL (0.60-1.10); ETHANOL 0.154 GM/DL (0.0-0.010); GLUCOSE 109 MG/DL (70-104); MAGNESIUM 2.2 MG/DL (1.5-2.4); POTASSIUM 3.1 MMOL/L (3.5-5.1); SODIUM 136 MMOL/L (135-145); TOTAL CARBON DIOXIDE 28.7 MMOL/L (24-32); TOTAL PROTEIN 7.3 G/DL (6.4-8.2); eGFR > 90 ML/MIN
[2020-04-25] MEDS ORDERED: potassium Cl 20 mEq SR tablet PO STA (09:14)
[2020-04-25] MEDS ORDERED: phenobarbital inj 130 MG in normal saline 100ml IV soln 100 ML IV ONE (09:15)
[2020-04-25 09:31] VITALS: BP 138/77
[2020-04-25 09:46] LABS: PLATELET ESTIMATE DECREASED
[2020-04-25] MEDS ORDERED: CHLO25CA10 PO (20:24)
== END 2020-04-25 10:10 | disposition home or self-care (01) ==
LOC: ER 07:22
DX: F10.229 Alcohol dependence with intoxication, unspecified (principal); F10.239 Alcohol dependence with withdrawal, unspecified; E87.6 Hypokalemia; D69.6 Thrombocytopenia, unspecified; D50.0 Iron deficiency anemia secondary to blood loss (chronic); F32.9 Major depressive disorder, single episode, unspecified; Z86.69 Personal history of other diseases of the nervous system and sense organs; Z88.0 Allergy status to penicillin; Z88.1 Allergy status to other antibiotic agents; Z79.899 Other long term (current) drug therapy; Y90.0 Blood alcohol level of less than 20 mg/100 ml
CPT/HCPCS: 36415; 80053; 80320; 82948; 83735; 85025; 93005; 96365; 96366; 99284; J2560; J7030; 85008

== ENCOUNTER 2020-04-25 14:06 | Emergency (ER) | payer MEDICAID ==
[~2020-04-25] VITALS: Ht 177.8 cm; Wt 81.8 kg
[2020-04-25] MEDS ORDERED: LORazepam 2 mg/ml vial IV ONE (19:05)
[2020-04-25 19:28] LABS: BASOPHILS % (AUTO) 1.1 % (0-1); EOSINOPHILS % (AUTO) 0.4 % (0-6); HEMATOCRIT 35.9 % (42.0-52.0); HEMOGLOBIN 12.4 g/dl (14.0-17.9); LYMPHOCYTES # (AUTO) 0.3 X10'3 (1.1-4.8); LYMPHOCYTES % (AUTO) 7.3 % (21-51); MEAN CORPUSCULAR HEMOGLOBIN 34.5 PG (27.0-31.0); MEAN CORPUSCULAR HGB CONC 34.5 g/dL (33.0-36.5); MEAN CORPUSCULAR VOLUME 99.8 FL (78-98); MEAN PLATELET VOLUME 7.2 FL (7.4-10.4); MONOCYTES # (AUTO) 0.4 X10'3 (0-0.9); MONOCYTES % (AUTO) 9.2 % (2-12); NEUTROPHILS # (AUTO) 3.4 X10'3 (1.8-7.7); PLATELET COUNT 63 X10'3 (140-440); RED CELL DISTRIBUTION WIDTH 16.7 % (11.5-14.5); WHITE BLOOD COUNT 4.2 X10'3 (4.5-11.0)
[2020-04-25] MEDS ORDERED: normal saline 1000ml 1,000 ML IV ONE ×2 (19:30)
[2020-04-25 19:46] LABS: ALANINE AMINOTRANSFERASE 136 U/L (12-78); ALBUMIN 3.9 G/DL (3.4-5.0); ALBUMIN/GLOBULIN RATIO 1.1 (1.1-1.5); ALKALINE PHOSPHATASE 97 IU/L (46-116); ANION GAP 11 (8-16); ASPARTATE AMINO TRANSFERASE 223 U/L (10-37); BILIRUBIN,TOTAL 1.3 MG/DL (0.1-1.0); BLOOD UREA NITROGEN 7 MG/DL (7-18); BUN/CREATININE RATIO 9.1 (5.4-32.0); CHLORIDE 102 MMOL/L (99-107); CREATININE 0.77 MG/DL (0.60-1.10); ETHANOL < 0.010 GM/DL (0.0-0.010); GLUCOSE 85 MG/DL (70-104); LIPASE 450 U/L (73-393); POTASSIUM 3.6 MMOL/L (3.5-5.1); SODIUM 138 MMOL/L (135-145); TOTAL CARBON DIOXIDE 25.2 MMOL/L (24-32); TOTAL PROTEIN 7.5 G/DL (6.4-8.2); eGFR > 90 ML/MIN
[2020-04-25 19:52] LABS: CLARITY,URINE CLEAR (Clear); COLOR,URINE YELLOW (Yellow); GLUCOSE, URINE NEGATIVE (Neg); KETONES,URINE 40 mg/dl (Neg); LEUKOCYTE ESTERASE ,URINE NEGATIVE (Neg); NITRITES, URINE NEGATIVE (Neg); OCCULT BLOOD,URINE MODERATE (Neg); PROTEIN,URINE TRACE mg/dl (Neg); UROBILINOGEN,URINE 0.2 E.U/dL (0.2-1.0)
[2020-04-25 19:57] LABS: UA COLLECTION TYPE URINAL
[2020-04-25 20:15] LABS: SQUAMOUS EPITHELIAL CELL,UR FEW /LPF (FEW); WBC,URINE 0-4 /HPF (0-4)
[2020-04-25 20:16] LABS: BACTERIA,URINE FEW /HPF (Neg); RBC,URINE 0-2 /HPF (0-2)
[2020-04-25] MEDS ORDERED: CHLO25CA10 PO (20:24)
[2020-04-25 21:24] VITALS: BP 146/95
== END 2020-04-25 21:26 | disposition home or self-care (01) ==
LOC: ER 14:06
DX: F10.239 Alcohol dependence with withdrawal, unspecified (principal); M25.571 Pain in right ankle and joints of right foot; F32.9 Major depressive disorder, single episode, unspecified; Z86.69 Personal history of other diseases of the nervous system and sense organs; Z72.89 Other problems related to lifestyle; Z88.0 Allergy status to penicillin; Z88.1 Allergy status to other antibiotic agents; Z79.899 Other long term (current) drug therapy; Y90.0 Blood alcohol level of less than 20 mg/100 ml
CPT/HCPCS: 36415; 71046; 80053; 80320; 81001; 82140; 82948; 83690; 83735; 85025; 93005; 96361; 96374; 99285; J2060; J7030

== ENCOUNTER 2020-07-13 05:27 | Inpatient (IN) | payer MEDICAID ==
[~2020-07-13] VITALS: Ht 177.8 cm; Wt 75.0 kg
[~2020-07-13 05:27] MED LIST changes: +CHLO25CA10 PO
[2020-07-13] MEDS ORDERED: magnesium 2GM in 50ml NS 50 ML IV ONE (06:00)
[2020-07-13] MEDS ORDERED: thiamine inj. 100 MG in normal saline 100ml IV soln 99 ML IV ONE (06:00)
[2020-07-13] MEDS ORDERED: normal saline 1000ML IV soln IVB ONE ×2 (06:00→07:35)
[2020-07-13] MEDS ORDERED: phenobarbital inj 260 MG in normal saline 100ml IV soln 100 ML IV ONE (06:00)
--- NOTE | 2020-07-13 06:11 | NUR ---
marily raphael unable to obtain ecg at this time Addendum: 07/13/20 at 0611 by MARYANNE patient, dr evaristo rodriguez
[2020-07-13 06:17] LABS: BASOPHILS % (AUTO) 0.8 % (0-1); EOSINOPHILS % (AUTO) 0.2 % (0-6); HEMATOCRIT 31.9 % (42.0-52.0); HEMOGLOBIN 10.9 g/dl (14.0-17.9); LYMPHOCYTES # (AUTO) 0.3 X10'3 (1.1-4.8); LYMPHOCYTES % (AUTO) 4.7 % (21-51); MEAN CORPUSCULAR HEMOGLOBIN 34.7 PG (27.0-31.0); MEAN CORPUSCULAR HGB CONC 34.3 g/dL (33.0-36.5); MEAN CORPUSCULAR VOLUME 101.3 FL (78-98); MONOCYTES # (AUTO) 0.6 X10'3 (0-0.9); MONOCYTES % (AUTO) 10.6 % (2-12); NEUTROPHILS # (AUTO) 4.8 X10'3 (1.8-7.7); NEUTROPHILS % (AUTO) 83.7 % (42-75); PLATELET COUNT 51 X10'3 (140-440); RED BLOOD COUNT 3.15 X10'6 (4.70-6.10); RED CELL DISTRIBUTION WIDTH 16.4 % (11.5-14.5); WHITE BLOOD COUNT 5.8 X10'3 (4.5-11.0)
--- NOTE | 2020-07-13 06:22 | NUR ---
patient reports pain to head and feet
--- NOTE | 2020-07-13 06:25 | NUR ---
reporte dto charge nurse no seizure pads avail in unit
--- NOTE | 2020-07-13 06:26 | NUR ---
Dr conti at bedside to quick look patietn condition verbal order for 4 mg IV morphiine
[2020-07-13] MEDS ORDERED: morphine 4 MG/ML inj SYRINge IV ONE (06:30)
[2020-07-13 06:52] LABS: ALANINE AMINOTRANSFERASE 134 U/L (12-78); ALBUMIN 3.4 G/DL (3.4-5.0); ALBUMIN/GLOBULIN RATIO 0.9 (1.1-1.5); ALKALINE PHOSPHATASE 90 IU/L (46-116); ANION GAP 15 (8-16); ASPARTATE AMINO TRANSFERASE 218 U/L (10-37); BILIRUBIN,TOTAL 0.5 MG/DL (0.1-1.0); BLOOD UREA NITROGEN 8 MG/DL (7-18); BUN/CREATININE RATIO 10.5 (5.4-32.0); CALCIUM 8.5 MG/DL (8.5-10.1); CHLORIDE 97 MMOL/L (99-107); CREATININE 0.76 MG/DL (0.60-1.10); ETHANOL 0.079 GM/DL (0.0-0.010); GLUCOSE 78 MG/DL (70-104); LIPASE 468 U/L (73-393); MAGNESIUM 1.5 MG/DL (1.5-2.4); SODIUM 138 MMOL/L (135-145); TOTAL CARBON DIOXIDE 26.3 MMOL/L (24-32); TOTAL PROTEIN 7.2 G/DL (6.4-8.2); eGFR > 90 ML/MIN
[2020-07-13 06:55] LABS: POTASSIUM 2.9 MMOL/L (3.5-5.1)
--- NOTE | 2020-07-13 07:04 | NUR ---
RCVD REPORT, PT IS AWAKE, AWARE, AND ABLE TO ANSWER QUESTIONS, HIS FLUIDS ARE RUNNING, WILL CONT TO ASSESSS
[2020-07-13] MEDS ORDERED: potassium Cl 10 mEq/100mL bag IV ONE (07:20)
[2020-07-13] MEDS ORDERED: LORazepam 2 mg/ml vial IV ONE ×2 (07:20→10:10)
[2020-07-13] MEDS ORDERED: D5-1/2NS w/20 mEq potassium per 1000ml IV ONE (07:20)
[2020-07-13] MEDS ORDERED: potassium Cl 20 mEq SR tablet PO ONE (07:20)
[2020-07-13] MEDS ORDERED: iohexol 300mg/ml 100ml inj. ONE (08:06)
[2020-07-13] MEDS ORDERED: haloperidol lactate 5mg/ml inj IM ONE (08:10)
[2020-07-13 08:46] LABS: CLARITY,URINE SLIGHTLY CLOUDY (Clear); COLOR,URINE YELLOW (Yellow); GLUCOSE, URINE NEGATIVE (Neg); KETONES,URINE NEGATIVE (Neg); LEUKOCYTE ESTERASE ,URINE NEGATIVE (Neg); NITRITES, URINE NEGATIVE (Neg); OCCULT BLOOD,URINE MODERATE (Neg); PROTEIN,URINE 30 mg/dl (Neg)
[2020-07-13 08:47] LABS: UA COLLECTION TYPE URINAL
[2020-07-13 08:52] LABS: HYALINE CASTS 0-3 /LPF (NEGATIVE); MUCUS STRANDS MODERATE /LPF (Neg); SQUAMOUS EPITHELIAL CELL,UR FEW /LPF (FEW)
[2020-07-13 08:53] LABS: BACTERIA,URINE 1+ /HPF (Neg); RBC,URINE 0-2 /HPF (0-2); WBC,URINE 0-4 /HPF (0-4)
[2020-07-13 09:27] LABS: PARTIAL THROMBOPLASTIN TIME 26 SECONDS (22-32)
[2020-07-13] MEDS ORDERED: CefTRIAXone/D5W-Rocephin 1gm 50 ML IV ONE (10:10)
[2020-07-13] MEDS ORDERED: metroNIDAZOLE-Flagyl 500mg/NS 100 ML IV ONE (10:10)
[2020-07-13] MEDS ORDERED: pantoprazole 40 MG vial IV ONE (10:10)
[2020-07-13 11:28] LABS: C-REACTIVE PROTEIN 0.56 MG/DL (0.0-0.5)
[2020-07-13] MEDS ORDERED: mag hydrox/Alum hydrox/simeth 30ml oral suspension PO PRN ×2 (13:15)
[2020-07-13] MEDS ORDERED: dicyclomine 10 MG capsule PO PRN (13:15)
[2020-07-13] MEDS ORDERED: magnesium 4gm in 100ml NS 100 ML IV PRN (13:15)
[2020-07-13] MEDS ORDERED: loperamide 2mg capsule PO PRN (13:15)
[2020-07-13] MEDS ORDERED: acetaminophen 325mg tablet PO PRN ×2 (13:15)
[2020-07-13] MEDS ORDERED: bisacodyl 10mg suppository rectal RC PRN (13:15)
[2020-07-13] MEDS ORDERED: magnesium hydroxide 30ml (MOM) UD suspension PO PRN (13:15)
[2020-07-13] MEDS ORDERED: ondansetron/PF 4mg/2ml inj IV PRN (13:15)
[2020-07-13] MEDS ORDERED: cloNIDine 0.1 mg tablet PO PRN (13:15)
[2020-07-13] MEDS ORDERED: dextrose 50%-water 50ml dispensing syringe IV PRN (13:15)
[2020-07-13] MEDS ORDERED: HYDROcodone/acetaminophen 5mg/325mg tablet PO PRN (13:15)
[2020-07-13] MEDS ORDERED: acetaminophen 650mg rectal suppository RC PRN (13:15)
[2020-07-13] MEDS ORDERED: potassium Cl 40MEQ/1/2NS 520ml 520 ML IV PRN ×2 (13:15)
[2020-07-13] MEDS ORDERED: potassium Cl 20 mEq SR tablet PO PRN ×2 (13:15)
[2020-07-13] MEDS ORDERED: magnesium Cl slow-release 64mg tablet PO PRN (13:15)
[2020-07-13] MEDS ORDERED: morphine 2 MG/ML inj. syringe IV PRN ×2 (13:15)
[2020-07-13] MEDS ORDERED: magnesium 2GM in 50ml NS 50 ML IV PRN (13:15)
[2020-07-13] MEDS ORDERED: haloperidol lactate 5mg/ml inj IM PRN (13:15)
[2020-07-13] MEDS ORDERED: thiamine 100mg/ml 2ml inj. IV ONE (13:15)
[2020-07-13] MEDS ORDERED: diphenhydrAMINE 25mg capsule PO PRN (13:15)
[2020-07-13] MEDS: LORazepam 2 mg/ml vial IV PRN ×4 (13:55→21:46)
[2020-07-13] MEDS: dextrose 5%-normal saline 1,000 ML IV SCH ×2 (13:55→22:34)
[2020-07-13] MEDS ORDERED: calamine LOTION TP PRN (14:05)
[2020-07-13 14:31] LABS: HEMOGLOBIN A1C 5.3 % (4.5-6.2)
--- NOTE | 2020-07-13 16:02 | NUR ---
changed patient gown and sheets, placed a condom cath due to incontinence. placed dry flows beneath patient
[2020-07-13] MEDS: metroNIDAZOLE-Flagyl 500mg/NS 100 ML IV SCH (16:16)
[2020-07-13] MEDS ORDERED: hydrALAZINE 20mg/ml inj. IV PRN (18:05)
[2020-07-13] MEDS ORDERED: magnesium 4gm in 100ml NS 100 ML IV ONE (18:05)
[2020-07-13] MEDS ORDERED: hydrALAZINE 20mg/ml inj. IV ONE (18:05)
[2020-07-13 18:51] LABS: POTASSIUM 3.2 MMOL/L (3.5-5.1)
[2020-07-13] MEDS ORDERED: heparin, porcine 5000 units/ml vial SQ SCH (20:00)
[2020-07-13] MEDS: K and/or MAG REPLACEMENT MC SCH (20:00)
[2020-07-13] MEDS: pantoprazole 40 MG vial IV SCH (20:22)
--- NOTE | 2020-07-13 22:00 | NUR ---
TRANSFERRED TO HOSPITAL BED, CLEANED AND CHANGED AFTER URINE INCONTINENCE.
[2020-07-14] MEDS: metroNIDAZOLE-Flagyl 500mg/NS 100 ML IV SCH ×4 (00:46→23:48)
--- NOTE | 2020-07-14 00:46 | NUR ---
Pt's potassium infusion completed, 40 meq. flagyl ivpb now infusing.
--- NOTE | 2020-07-14 01:10 | NUR ---
PT HAD EPISODE OF URINARY INCONTINENCE (BEDDING WAS SATURATED) AND PTS CONDOM CATHETER HAD COME OFF AGAIN. PT CLEANED AND NEW GOWN AND BEDDING IN PLACE AND BARRIER CREAM TO BUTTOCK AND HIPS AND PERIAREA (IAD RASH).
--- NOTE | 2020-07-14 03:49 | NUR ---
CONDOM CATHETER NOT REPLACED IT HAS NOT BEEN WORKING WELL FOR PT.
--- NOTE | 2020-07-14 04:47 | NUR ---
PTS HR NOTED AROUND 140'S AND THEN FOUND STANDING AT THE EDGE OF HIS BED AND SHEETS AND GOWN WET FROM URINE. HE REQUESTED THE URINIAL AND THAT THE URIINAL BE PLACED CLOSE TO HIM. PT ASSISTED TO USE URINE, SHEETS AND GOWN CHANGED AND PT LAY BACK IN THE BED. HR THEN DOWN TO 110.
[2020-07-14] MEDS: LORazepam 2 mg/ml vial IV PRN ×2 (05:05→16:47)
[2020-07-14] MEDS: dextrose 5%-normal saline 1,000 ML IV SCH ×3 (05:15→21:15)
[2020-07-14] MEDS: pantoprazole 40 MG vial IV SCH ×2 (07:57→20:15)
[2020-07-14] MEDS ORDERED: thiamine inj. 100 MG, MVI, adult No.4 with vit. K 10 ML in dextrose 5% water 500ml 500 ML IV SCH ×3 (08:00)
[2020-07-14] MEDS ORDERED: folic acid 1mg/0.2ml inj IV SCH (08:00)
[2020-07-14] MEDS: K and/or MAG REPLACEMENT MC SCH ×2 (08:25→20:00)
[2020-07-14] MEDS: CefTRIAXone/D5W-Rocephin 1gm 50 ML IV SCH (08:40)
[2020-07-14 09:28] LABS: HIV ANTIBODY 1&2 RAPID NON-REACTIVE (Neg)
[2020-07-14 09:59] LABS: EOSINOPHILS # (AUTO) 0.1 X10'3 (0-0.9); HEMOGLOBIN 11.1 g/dl (14.0-17.9)
[2020-07-14 10:02] LABS: BASOPHILS # (AUTO) 0.1 X10'3 (0-0.2); BASOPHILS % (AUTO) 0.8 % (0-1); EOSINOPHILS % (AUTO) 1.1 % (0-6); HEMATOCRIT 32.1 % (42.0-52.0); LYMPHOCYTES # (AUTO) 0.7 X10'3 (1.1-4.8); LYMPHOCYTES % (AUTO) 7.2 % (21-51); MEAN CORPUSCULAR HGB CONC 34.5 g/dL (33.0-36.5); MEAN CORPUSCULAR VOLUME 101.5 FL (78-98); MEAN PLATELET VOLUME 8.1 FL (7.4-10.4); MONOCYTES # (AUTO) 0.5 X10'3 (0-0.9); MONOCYTES % (AUTO) 5.5 % (2-12); NEUTROPHILS # (AUTO) 7.7 X10'3 (1.8-7.7); NEUTROPHILS % (AUTO) 85.4 % (42-75); PLATELET COUNT 57 X10'3 (140-440); RED BLOOD COUNT 3.17 X10'6 (4.70-6.10); WHITE BLOOD COUNT 9.1 X10'3 (4.5-11.0)
[2020-07-14 10:24] LABS: ALANINE AMINOTRANSFERASE 114 U/L (12-78); ALBUMIN 3.2 G/DL (3.4-5.0); ALBUMIN/GLOBULIN RATIO 0.9 (1.1-1.5); ALKALINE PHOSPHATASE 103 IU/L (46-116); AMYLASE 47 U/L (25-115); ANION GAP 9 (8-16); ASPARTATE AMINO TRANSFERASE 155 U/L (10-37); BILIRUBIN,TOTAL 1.2 MG/DL (0.1-1.0); BLOOD UREA NITROGEN 4 MG/DL (7-18); BUN/CREATININE RATIO 5.6 (5.4-32.0); CALCIUM 8.2 MG/DL (8.5-10.1); CHLORIDE 101 MMOL/L (99-107); CHOL/HDL RATIO 2.2 (0.00-4.99); CHOLESTEROL 173 MG/DL (0-200); CREATININE 0.72 MG/DL (0.60-1.10); GLUCOSE 92 MG/DL (70-104); HDL CHOLESTEROL 78 MG/DL (35-60); LDL CHOLESTEROL 57 MG/DL (50-100); LIPASE 330 U/L (73-393); MAGNESIUM 2.3 MG/DL (1.5-2.4); PHOSPHORUS 2.4 MG/DL (2.3-4.5); POTASSIUM 3.9 MMOL/L (3.5-5.1); SODIUM 135 MMOL/L (135-145); TOTAL CARBON DIOXIDE 24.7 MMOL/L (24-32); TOTAL PROTEIN 6.9 G/DL (6.4-8.2); TRIGLYCERIDES 30 MG/DL (20-135); eGFR > 90 ML/MIN
--- NOTE | 2020-07-14 15:12 | NUR ---
Called ER to receive report. RN busy will try tono.
[2020-07-14 15:36] LABS: URINE AMPHETAMINE SCREEN NEGATIVE (Neg); URINE BARBITUATE SCREEN POSITIVE (Neg); URINE BENZODIAZEPINES SCREEN NEGATIVE (Neg); URINE CANNABINOID SCREEN NEGATIVE (Neg); URINE COCAINE SCREEN NEGATIVE (Neg); URINE METHADONE SCREEN NEGATIVE (Neg); URINE OPIATE SCREEN POSITIVE (Neg); URINE PHENCYCLIDINE SCREEN NEGATIVE (Neg)
--- NOTE | 2020-07-14 16:00 | NUR ---
Patient in room PCU 3026. I have received report from Vesta and trainee RN and had the opportunity to ask questions and assume patient care.
--- NOTE | 2020-07-14 16:05 | NUR ---
Patient is in room. Transferred him to another bed. New IV place in LFA 22G and D5 ns running 125ml/hr. 2 RN skin check and mrsa complete. No wound pictures taken. Patient is shaky and unstable gait on bedrest. Tele #[id number] placed, BLL, call light in reach and items and seizure measures taken. Will continue to monitor,
[2020-07-14 17:47] LABS: OCCULT BLOOD STOOL NEGATIVE (Neg)
[2020-07-14 18:00] VITALS: BP 125/81
--- NOTE | 2020-07-14 18:40 | NUR ---
Problems reprioritized. Patient report given, questions answered & plan of care reviewed with Miya CRISOSTOMO.
--- NOTE | 2020-07-14 18:47 | NUR ---
Patient in room PCU 3026. I have received report from Dilma CRISOSTOMO and had the opportunity to ask questions and assume patient care.
[2020-07-14 22:00] VITALS: BP 128/84
[2020-07-14] MEDS: HYDROcodone/acetaminophen 10/325mg tab PO PRN (23:45)
[2020-07-15] MEDS: LORazepam 2 mg/ml vial IV PRN ×4 (01:34→11:45)
[2020-07-15 02:00] VITALS: BP 138/81
--- NOTE | 2020-07-15 05:52 | NUR ---
Orientee documentation: I have reviewed and agree with all interventions, assessments performed and documented by Filemon CRISOSTOMO. [place]ee Medication Administration: For this medication-pass time frame, all medication were reviewed, dispensed, administered and documented per hospital policy by Filemon CRISOSTOMO.
[2020-07-15 06:11] LABS: EOSINOPHILS # (AUTO) 0.1 X10'3 (0-0.9); EOSINOPHILS % (AUTO) 1.7 % (0-6); HEMATOCRIT 29.1 % (42.0-52.0); HEMOGLOBIN 10.2 g/dl (14.0-17.9); LYMPHOCYTES # (AUTO) 0.8 X10'3 (1.1-4.8); LYMPHOCYTES % (AUTO) 17.6 % (21-51); MEAN CORPUSCULAR HEMOGLOBIN 35.7 PG (27.0-31.0); MEAN CORPUSCULAR HGB CONC 35.1 g/dL (33.0-36.5); MEAN CORPUSCULAR VOLUME 101.7 FL (78-98); MEAN PLATELET VOLUME 8.3 FL (7.4-10.4); MONOCYTES # (AUTO) 0.5 X10'3 (0-0.9); MONOCYTES % (AUTO) 11.5 % (2-12); NEUTROPHILS # (AUTO) 3.2 X10'3 (1.8-7.7); NEUTROPHILS % (AUTO) 68.2 % (42-75); PLATELET COUNT 63 X10'3 (140-440); RED BLOOD COUNT 2.86 X10'6 (4.70-6.10); RED CELL DISTRIBUTION WIDTH 15.9 % (11.5-14.5); WHITE BLOOD COUNT 4.6 X10'3 (4.5-11.0)
--- NOTE | 2020-07-15 06:19 | NUR ---
Patient in room PCU 3026. I have received report from Melba CRISOSTOMO and Filemon CRISOSTOMO and had the opportunity to ask questions and assume patient care.
[2020-07-15 06:25] LABS: ALANINE AMINOTRANSFERASE 85 U/L (12-78); ALBUMIN 2.9 G/DL (3.4-5.0); ALBUMIN/GLOBULIN RATIO 0.9 (1.1-1.5); ALKALINE PHOSPHATASE 93 IU/L (46-116); AMYLASE 43 U/L (25-115); ANION GAP 7 (8-16); ASPARTATE AMINO TRANSFERASE 99 U/L (10-37); BILIRUBIN,TOTAL 0.7 MG/DL (0.1-1.0); BLOOD UREA NITROGEN 7 MG/DL (7-18); BUN/CREATININE RATIO 9.6 (5.4-32.0); CHLORIDE 102 MMOL/L (99-107); CREATININE 0.73 MG/DL (0.60-1.10); GLUCOSE 91 MG/DL (70-104); LIPASE 267 U/L (73-393); MAGNESIUM 2.1 MG/DL (1.5-2.4); POTASSIUM 3.4 MMOL/L (3.5-5.1); SODIUM 135 MMOL/L (135-145); TOTAL CARBON DIOXIDE 26.2 MMOL/L (24-32); TOTAL PROTEIN 6.3 G/DL (6.4-8.2); eGFR > 90 ML/MIN
--- NOTE | 2020-07-15 06:25 | NUR ---
Problems reprioritized. Patient report given, questions answered & plan of care reviewed with Grisel CRISOSTOMO.
--- NOTE | 2020-07-15 06:26 | NUR ---
Problems reprioritized. Patient report given, questions answered & plan of care reviewed with Grisel CRISOSTOMO.
[2020-07-15 06:59] VITALS: BP 144/95
[2020-07-15] MEDS: pantoprazole 40 MG vial IV SCH (07:26)
[2020-07-15] MEDS: metroNIDAZOLE-Flagyl 500mg/NS 100 ML IV SCH (07:26)
[2020-07-15] MEDS: HYDROcodone/acetaminophen 10/325mg tab PO PRN (07:28)
[2020-07-15] MEDS ORDERED: multivitamins, therapeutics tablet PO SCH (08:00)
[2020-07-15] MEDS ORDERED: thiamine 100mg tablet PO SCH (08:00)
[2020-07-15] MEDS ORDERED: folic acid 1mg tablet PO SCH (08:00)
[2020-07-15] MEDS: K and/or MAG REPLACEMENT MC SCH (08:00)
[2020-07-15] MEDS: CefTRIAXone/D5W-Rocephin 1gm 50 ML IV SCH (09:29)
[2020-07-15] MEDS ORDERED: FLU VACC QS2020-21(6MOS UP)/PF 60 MCG/0.5 ML SYRINGE IMVAC ONE (10:00)
[2020-07-15] MEDS ORDERED: CEFD300C3 PO (10:57)
[2020-07-15] MEDS ORDERED: LORA-269 PO (10:57)
[2020-07-15] MEDS ORDERED: METR-159 PO (10:57)
[2020-07-15] MEDS ORDERED: MULT-25 PO (10:57)
[2020-07-15] MEDS ORDERED: THIA50TA10 PO (10:57)
[2020-07-15] MEDS ORDERED: PANT40TA54 PO (10:57)
[2020-07-15] MEDS ORDERED: FOLI0.4T2 PO (10:57)
[2020-07-16 14:51] LABS: HBSAG SCREEN Negative (Negative); HEP A AB, IGM Negative (Negative); HEPATITIS C ANTIBODY <0.1 s/co ratio (0.0-0.9)
== END 2020-07-15 12:35 | disposition home or self-care (01) | DRG 775 ==
LOC: ER 05:27 → ED HOLD 13:12 → PCU 3S 07-14 15:35
PROVIDERS: ADMIT Family Medicine; ATTEND Family Medicine
DX: F10.229 Alcohol dependence with intoxication, unspecified (principal); F10.230 Alcohol dependence with withdrawal, uncomplicated; D64.9 Anemia, unspecified; D69.6 Thrombocytopenia, unspecified; E87.2 Acidosis; E87.6 Hypokalemia; I10 Essential (primary) hypertension; K21.9 Gastro-esophageal reflux disease without esophagitis; K70.10 Alcoholic hepatitis without ascites; K76.0 Fatty (change of) liver, not elsewhere classified; K85.90 Acute pancreatitis without necrosis or infection, unspecified; K92.2 Gastrointestinal hemorrhage, unspecified; Z20.828 Contact with and (suspected) exposure to other viral communicable diseases; F32.9 Major depressive disorder, single episode, unspecified; G62.9 Polyneuropathy, unspecified; Z91.19 Patient's noncompliance with other medical treatment and regimen; Z88.0 Allergy status to penicillin; Z88.1 Allergy status to other antibiotic agents; Z23 Encounter for immunization
CPT/HCPCS: 36415; 70450; 70486; 71045; 74177; 76700; 80053; 80061; 80305; 80320; 81001; 82150; 82272; 82607; 82728; 82948; 83036; 83540; 83550; 83605; 83615; 83690; 83735; 84100; 84132; 84145; 84443; 85025; 85384; 85610; 85730; 86140; 86703; 86705; 86706; 86709; 86803; 86885; 86900; 86901; 87040; 87081; 87340; 87635; 92508; 92616; 93005; 96365; 99285; C9113; C9803; G0378; J0360; J0696; J1630; J2060; J2270; J2560; J3411; J3475; J3480; J3490; J7030; J7042; J7060; Q0163; Q2039; Q9967

== ENCOUNTER 2020-10-16 17:51 | Emergency (ER) | payer MEDICAID ==
[~2020-10-16] VITALS: Ht 177.8 cm; Wt 91.0 kg
[~2020-10-16 17:51] MED LIST changes: -CHLO25CA10 PO; -GABA300C PO; -MULT-1074 PO; +MULT-25 PO; -NYSPWD TP
[2020-10-16 17:54] VITALS: BP 114/65
[2020-10-16] MEDS ORDERED: normal saline 1000ML IV soln IVB ONE (18:00)
[2020-10-16] MEDS ORDERED: LORazepam 1 MG tablet PO ONE (18:05)
== END 2020-10-16 19:22 | disposition home or self-care (01) ==
LOC: ER 17:51
DX: F10.129 Alcohol abuse with intoxication, unspecified (principal); F32.9 Major depressive disorder, single episode, unspecified; F17.210 Nicotine dependence, cigarettes, uncomplicated; Z86.69 Personal history of other diseases of the nervous system and sense organs; Z88.0 Allergy status to penicillin; Z88.1 Allergy status to other antibiotic agents; Z79.899 Other long term (current) drug therapy; Y90.0 Blood alcohol level of less than 20 mg/100 ml
CPT/HCPCS: 96360; 99284; J7030

== ENCOUNTER 2020-10-20 08:17 | Emergency (ER) | payer MEDICAID ==
[~2020-10-20] VITALS: Ht 175.3 cm; Wt 70.0 kg
[2020-10-20] MEDS ORDERED: normal saline 1000ML IV soln IVB ONE (09:20)
[2020-10-20] MEDS ORDERED: thiamine 100mg tablet PO ONE (09:20)
[2020-10-20] MEDS ORDERED: magnesium oxide 400mg tablet PO ONE (09:20)
[2020-10-20] MEDS ORDERED: phenobarbital inj 130 MG in normal saline 100ml IV soln 100 ML IV ONE ×2 (09:20→11:35)
[2020-10-20 09:37] LABS: BASOPHILS % (AUTO) 0.2 % (0-1); EOSINOPHILS % (AUTO) 0.2 % (0-6); HEMATOCRIT 33.3 % (42.0-52.0); HEMOGLOBIN 11.3 g/dl (14.0-17.9); LYMPHOCYTES # (AUTO) 0.4 X10'3 (1.1-4.8); LYMPHOCYTES % (AUTO) 9.7 % (21-51); MEAN CORPUSCULAR HEMOGLOBIN 33.5 PG (27.0-31.0); MEAN CORPUSCULAR HGB CONC 33.9 g/dL (33.0-36.5); MEAN PLATELET VOLUME 6.5 FL (7.4-10.4); MONOCYTES # (AUTO) 0.5 X10'3 (0-0.9); MONOCYTES % (AUTO) 10.4 % (2-12); NEUTROPHILS # (AUTO) 3.5 X10'3 (1.8-7.7); NEUTROPHILS % (AUTO) 79.5 % (42-75); PLATELET COUNT 54 X10'3 (140-440); RED BLOOD COUNT 3.36 X10'6 (4.70-6.10); RED CELL DISTRIBUTION WIDTH 14.3 % (11.5-14.5); WHITE BLOOD COUNT 4.5 X10'3 (4.5-11.0)
[2020-10-20 09:59] LABS: ALANINE AMINOTRANSFERASE 63 U/L (12-78); ALBUMIN/GLOBULIN RATIO 0.9 (1.1-1.5); ALKALINE PHOSPHATASE 69 IU/L (46-116); ANION GAP 11 (8-16); ASPARTATE AMINO TRANSFERASE 70 U/L (10-37); BILIRUBIN,TOTAL 0.5 MG/DL (0.1-1.0); BLOOD UREA NITROGEN 10 MG/DL (7-18); BUN/CREATININE RATIO 15.4 (5.4-32.0); CALCIUM 8.2 MG/DL (8.5-10.1); CHLORIDE 98 MMOL/L (99-107); CREATININE 0.65 MG/DL (0.60-1.10); GLUCOSE 80 MG/DL (70-104); MAGNESIUM 1.4 MG/DL (1.5-2.4); POTASSIUM 3.5 MMOL/L (3.5-5.1); SODIUM 137 MMOL/L (135-145); TOTAL CARBON DIOXIDE 27.7 MMOL/L (24-32); TOTAL PROTEIN 6.4 G/DL (6.4-8.2); eGFR > 90 ML/MIN
--- NOTE | 2020-10-20 11:33 | NUR ---
PATIENT REPORTS FEELING SHAKY AND ANXIOUS. DR. FLORES NOTIFIED.
[2020-10-20] MEDS ORDERED: zinc oxide ointment 30gm tube TP SCH ×2 (11:35→20:00)
--- NOTE | 2020-10-20 13:00 | NUR ---
PHENOBARB IVPB X 2 IN PROGRESS. PATIENT RESTING ON GURNEY. NO SEIZURE ACTIVITY NOTED. SIDERAILS PADDED.
[2020-10-20 15:20] VITALS: BP 156/89
[2020-10-20] MEDS ORDERED: CHLO25CA10 PO (15:35)
[2020-10-20] MEDS ORDERED: ZINC57OI3 TOP (15:35)
== END 2020-10-20 16:20 | disposition home or self-care (01) ==
LOC: ER 08:17
DX: S31.829A Unspecified open wound of left buttock, initial encounter (principal); S31.819A Unspecified open wound of right buttock, initial encounter; F10.239 Alcohol dependence with withdrawal, unspecified; F32.9 Major depressive disorder, single episode, unspecified; Z88.6 Allergy status to analgesic agent; Z72.89 Other problems related to lifestyle; Z88.0 Allergy status to penicillin; Z88.1 Allergy status to other antibiotic agents; Z79.899 Other long term (current) drug therapy; X58.XXXA Exposure to other specified factors, initial encounter; Y93.89 Activity, other specified; Y92.89 Other specified places as the place of occurrence of the external cause; Y99.8 Other external cause status; Y90.0 Blood alcohol level of less than 20 mg/100 ml
CPT/HCPCS: 36415; 80053; 80320; 83735; 85025; 93005; 96365; 96366; 99285; J2560; J7030

== ENCOUNTER 2021-01-13 19:54 | Emergency (ER) | payer MEDICAID ==
[~2021-01-13] VITALS: Ht 177.8 cm; Wt 62.4 kg
[~2021-01-13 19:54] MED LIST changes: +CHLO25CA10 PO; +ZINC57OI3 TOP
[2021-01-13] MEDS ORDERED: normal saline 1000ml 1,000 ML IV ONE (20:25)
[2021-01-13] MEDS ORDERED: thiamine 100mg/ml 2ml inj. IV ONE (20:35)
[2021-01-13] MEDS ORDERED: normal saline 1000ML IV soln IVB ONE (20:35)
[2021-01-13] MEDS ORDERED: folic acid 1mg/0.2ml inj IV ONE (20:35)
[2021-01-13 20:38] LABS: EOSINOPHILS % (AUTO) 1.2 % (0-6); HEMATOCRIT 39.9 % (42.0-52.0); HEMOGLOBIN 13.7 g/dl (14.0-17.9); LYMPHOCYTES # (AUTO) 0.5 X10'3 (1.1-4.8); LYMPHOCYTES % (AUTO) 15.5 % (21-51); MEAN CORPUSCULAR HEMOGLOBIN 34.8 PG (27.0-31.0); MEAN CORPUSCULAR HGB CONC 34.4 g/dL (33.0-36.5); MEAN CORPUSCULAR VOLUME 101.3 FL (78-98); MEAN PLATELET VOLUME 6.2 FL (7.4-10.4); MONOCYTES # (AUTO) 0.3 X10'3 (0-0.9); MONOCYTES % (AUTO) 7.4 % (2-12); NEUTROPHILS # (AUTO) 2.6 X10'3 (1.8-7.7); NEUTROPHILS % (AUTO) 74.9 % (42-75); PLATELET COUNT 71 X10'3 (140-440); RED BLOOD COUNT 3.94 X10'6 (4.70-6.10); RED CELL DISTRIBUTION WIDTH 15.7 % (11.5-14.5); WHITE BLOOD COUNT 3.5 X10'3 (4.5-11.0)
[2021-01-13] MEDS ORDERED: famotidine/PF 10 mg/ml inj IV ONE (20:45)
[2021-01-13 20:49] LABS: ALANINE AMINOTRANSFERASE 134 U/L (12-78); ALBUMIN 3.8 G/DL (3.4-5.0); ALKALINE PHOSPHATASE 94 IU/L (46-116); ANION GAP 15 (8-16); ASPARTATE AMINO TRANSFERASE 190 U/L (10-37); BILIRUBIN,TOTAL 0.7 MG/DL (0.1-1.0); BLOOD UREA NITROGEN 15 MG/DL (7-18); BUN/CREATININE RATIO 19.2 (5.4-32.0); CALCIUM 8.1 MG/DL (8.5-10.1); CHLORIDE 99 MMOL/L (99-107); CREATININE 0.78 MG/DL (0.60-1.10); GLUCOSE 69 MG/DL (70-104); LIPASE 252 U/L (73-393); POTASSIUM 3.7 MMOL/L (3.5-5.1); SODIUM 140 MMOL/L (135-145); TOTAL CARBON DIOXIDE 25.7 MMOL/L (24-32); TOTAL PROTEIN 7.7 G/DL (6.4-8.2); eGFR > 90 ML/MIN
[2021-01-13 21:14] LABS: ETHANOL 0.364 GM/DL (0.0-0.010)
--- NOTE | 2021-01-13 21:34 | NUR ---
PA AT BEDSIDE
[2021-01-14 02:09] VITALS: BP 118/72
[2021-01-14] MEDS ORDERED: CHLO25CA10 PO (09:22)
== END 2021-01-14 02:13 | disposition home or self-care (01) ==
LOC: ER 19:54
DX: F10.129 Alcohol abuse with intoxication, unspecified (principal); R11.0 Nausea; F10.10 Alcohol abuse, uncomplicated; F32.9 Major depressive disorder, single episode, unspecified; Z72.89 Other problems related to lifestyle; Z86.69 Personal history of other diseases of the nervous system and sense organs; Z88.0 Allergy status to penicillin; Z88.1 Allergy status to other antibiotic agents; Z79.899 Other long term (current) drug therapy; Y90.0 Blood alcohol level of less than 20 mg/100 ml
CPT/HCPCS: 36415; 80053; 80320; 82140; 83690; 85025; 93005; 96361; 96374; 96375; 99284; J3411; J3490; J7030

== ENCOUNTER 2021-01-14 05:33 | Emergency (ER) | payer MEDICAID ==
[~2021-01-14] VITALS: Ht 177.8 cm; Wt 79.5 kg
--- NOTE | 2021-01-14 06:21 | NUR ---
Patient received on bed asleep,seizure pads on.
[2021-01-14] MEDS ORDERED: thiamine 100mg tablet PO ONE ×2 (06:50→07:21)
[2021-01-14] MEDS ORDERED: chlordiazePOXIDE 25mg capsule PO ONE ×2 (06:50→07:20)
[2021-01-14] MEDS ORDERED: folic acid 1mg tablet PO ONE ×2 (06:50→07:20)
--- NOTE | 2021-01-14 07:53 | NUR ---
pt attempted to gait test but patient very tremulous and refused to ambulate,Robbie Patricia,due emds given,will attenpt again later.
[2021-01-14] MEDS ORDERED: CHLO25CA10 PO (09:22)
--- NOTE | 2021-01-14 09:33 | NUR ---
PT IS UP FOR DC, PARENT WAS CALLED FOR RIDE HOME, MESSAGE LEFT
[2021-01-14 09:54] VITALS: BP 145/90
[2021-01-14 11:32] LABS: OCCULT BLOOD STOOL POSITIVE (Neg)
== END 2021-01-14 09:50 | disposition home or self-care (01) ==
LOC: ER 05:35
DX: F10.239 Alcohol dependence with withdrawal, unspecified (principal); K92.1 Melena; F32.9 Major depressive disorder, single episode, unspecified; Z86.69 Personal history of other diseases of the nervous system and sense organs; Z72.89 Other problems related to lifestyle; Z88.0 Allergy status to penicillin; Z88.1 Allergy status to other antibiotic agents; Z79.899 Other long term (current) drug therapy; Y90.9 Presence of alcohol in blood, level not specified
CPT/HCPCS: 82272; 99284